=== PATIENT | female | born 1970 | race Caucasian/White ===

== ENCOUNTER → 2016-10-06 | Outpatient (CLI) | payer OTHER ==
[~2016-10-06] MED LIST: FRCT/ PO; LISI-729 PO; METH4PAK PO; OXYC1TAB3 PO; PREDNISONE TAPER PO
[2016-10-06 16:08] LABS: BLOOD UREA NITROGEN 17 mg/dl (7-18); BUN/CREATININE RATIO 24.1 (10-20); CALCIUM 9.1 mg/dl (8.5-10.1); CARBON DIOXIDE 30 mmol/L (21-32); CHLORIDE 101 mmol/L (98-107); CHOLESTEROL 225 mg/dl (0-200); GLUCOSE 89 mg/dl (70-99); POTASSIUM 3.9 mmol/L (3.5-5.1); SODIUM 139 mmol/L (136-145); TRIGLYCERIDES 395 mg/dl (0-150); VERY LOW DENSITY LIPOPROT CALC 79 mg/dl
[2016-10-06 16:13] LABS: CHOLESTEROL/HDL RATIO 5.1; HDL CHOLESTEROL 44 mg/dl; LDL CHOLESTEROL CALCULATED 102 mg/dl
[2016-10-12 21:39] LABS: ANTI-CENTROMERE AB <1.0 NEG AI (<1.0 NEG); ANTI-SS-A <1.0 NEG AI (<1.0 NEG); ANTI-SS-B <1.0 NEG AI (<1.0 NEG); COXSACKIE A10 <1:8; COXSACKIE A16 <1:8; COXSACKIE A2 <1:8; COXSACKIE A4 <1:8; COXSACKIE A7 <1:8; COXSACKIE A9 <1:8; COXSACKIE B2 1:16 (<1:8); DNA ds CRITHIDIA NEGATIVE (NEGATIVE); MICROSOMAL AB <1 IU/ML (<9); PARVOVIRUS IgG INDEX 4.1 index (<0.9); PARVOVIRUS IgM INDEX 0.1 index (<0.9); Sm Antibody <1.0 NEG AI (<1.0 NEG)
== END | disposition home or self-care (01) ==
LOC: C.LAB1850 14:46
PROVIDERS: ATTEND Internal Medicine Infectious Disease
DX: I10 Essential (primary) hypertension (principal); M46.1 Sacroiliitis, not elsewhere classified

== ENCOUNTER → 2016-12-12 | Outpatient (CLI) | payer OTHER ==
[~2016-12-12] MED LIST changes: +GADAVIST IV PRN
--- NOTE | 2016-12-12 12:24 | DIAGNOSTIC IMAGING REPORT ---
Brain MRI WITH AND WITHOUT CONTRAST HISTORY: R33.9 Retention of [id number] Common migraine without auraM54. TECHNIQUE: Multiplanar multisequence MRI of the brain was performed both before and after the intravenous administration of contrast. COMPARISON STUDY: None. FINDINGS: There are no areas of restricted diffusion to suggest acute infarction. There is a is single punctate foci of T2 hyperintensity within the subcortical white matter of the left parietal lobe. The remaining brain parenchyma demonstrates a normal signal intensity. Mild right-sided cerebellar tonsillar ectopia which is positioned up to 4 mm below the level of the foramen magnum. Paranasal sinuses are clear. The mastoid air cells are clear. The ventricles and sulci are within normal limits for age. There is no mass, hematoma, midline shift. The major vascular flow-voids at the skull base are well maintained. Postcontrast sequences show no areas of abnormal enhancement. Incidental note is made of a 1.2 cm cyst within the right parietal choroid plexus. This is slightly hyperintense on FLAIR sequences but does not enhance. Therefore, this is consistent with a choroid plexus cyst and is of doubtful clinical significance. IMPRESSION: 1. No acute intracranial abnormality. 2. Mild right-sided cerebellar tonsillar ectopia. 3. Single punctate focus of T2 hyperintensity within the subcortical white matter of the left parietal lobe. This is nonspecific but could be due to microvascular ischemic change or migraines. A demyelinating disease is considered less likely. 4. Incidental note is made of a 1.2 cm right parietal choroid plexus cyst.. Electronically signed by: Young Zuluaga M.D. 12/12/2016 12:23 PM Dictated Date/Time: 12/12/2016 12:11 PM
== END | disposition home or self-care (01) ==
LOC: C.MRI 10:25
PROVIDERS: ATTEND Internal Medicine Infectious Disease
DX: G43.009 Migraine without aura, not intractable, without status migrainosus (principal); H57.10 Ocular pain, unspecified eye; M54.16 Radiculopathy, lumbar region; A69.20 Lyme disease, unspecified; R33.9 Retention of urine, unspecified; G93.0 Cerebral cysts

== ENCOUNTER → 2016-12-28 | Outpatient (CLI) | payer OTHER ==
[~2016-12-28] MED LIST changes: +ESCI1TAB6 PO; -GADAVIST IV PRN; +IBUP-1450 PO
== END | disposition home or self-care (01) ==
LOC: C.PAPS 14:53
PROVIDERS: ATTEND Nurse Practitioner
DX: Z12.4 Encounter for screening for malignant neoplasm of cervix (principal)

== ENCOUNTER 2017-01-19 07:51 | Day surgery (SDC) | payer OTHER ==
[~2017-01-19] VITALS: Ht 160 cm; Wt 75.0 kg
[2017-01-19] MEDS ORDERED: LISI-729 PO (08:25)
[2017-01-19 08:26] VITALS: Ht 160 cm; Wt 75.0 kg
--- NOTE | 2017-01-19 09:37 | Discharge Instructions ---
Discharge Instructions Procedure Procedure Date: Jan 19, 2017. Reason for visit: W/Opening Pressure Migraine W/O Aura,Lymes,Fatigue. Discharge Discharge Date: Jan 19, 2017. Discharge Diagnosis: headache Instructions Activity Recommendations: 1 Day-May resume regular activity, 48 Hours of decreased exertion, 1 Day with no driving/machine use Return to School/Work: no limitations Recommended Home Diet: Resume Previous Diet Provider Instructions: Lumbar Puncture performed with Fluoroscopic guidance [45 ] level with [ 25] needle. No complications. opening pressure 10mmhg closing pressure 9 mmhg Allergies Coded Allergies: No Known Allergies (Verified , 01/19/17) Uncoded Allergies: SEASONAL AND PET DANDER IS IRRRITATING-NO TRT. (Allergy, Unknown, 11/14/02) Kristie Robles Recommendations: Call your doctor if: * Temperature above 101 degrees * Pain not relieved by pain medicine ordered * There is increased drainage or redness from any incision * You have any unanswered questions or concerns. Your Doctors Instructions noted above were prepared by provider Fabian Medrano. Patient Signature Section: Patient Instructions Signature Page Angela Martinez Patient (or Guardian) Signature/Date: I have read and understand the instructions given to me by my caregivers. Caregiver/RN/Doctor Signature/Date: The above-named patient and/or guardian has received patient instructions on this date. + Original Patient Signature Page (only) stays with chart. Please make copy for patient.
--- NOTE | 2017-01-19 09:39 | DIAGNOSTIC IMAGING REPORT ---
FLUOROSCOPICALLY GUIDED LUMBAR PUNCTURE CLINICAL HISTORY: Diagnostic headache FLUOROSCOPY TIME: 0.1 minute PROCEDURE: The procedure, risks and benefits were discussed with the patient including the risk of spinal headache, bleeding and infection. The patient agreed to the procedure and informed written consent was obtained. The procedure was performed by Dr. Medrano following a timeout. The left L4-L5 interlaminar space was targeted. Skin overlying the space was prepped and draped in the usual sterile fashion and local anesthesia was achieved with 1% lidocaine. Under intermittent fluoroscopic guidance, a 20-gauge x 3 1/2 in. Sprotte needle was inserted into the thecal sac. A total of 10 cc of clear, colorless cerebral spinal fluid was obtained and spread amongst 4 vials. The patient tolerated the procedure well. There were no immediate complications. The specimens were sent to the laboratory at the request of the referring physician. IMPRESSION: Successful fluoroscopic guided lumbar puncture with removal of 10 cc of clear, colorless cerebral spinal fluid. No immediate complications. Opening pressure 10 mmHg. Closing pressure 9 mmHg Electronically signed by: Fabian Medrano M.D. 01/19/2017 9:37 AM Dictated Date/Time: 01/19/2017 9:36 AM
[2017-01-19] MEDS ORDERED: ACETAMINOPHEN 500 MG TAB PO PRN (09:45)
[2017-01-19] MEDS ORDERED: ACETAMINOPHEN 500 MG TAB PO ONE (09:53)
[2017-01-19 10:05] VITALS: BP 131/74; PULSE 72; TEMP 36.8; O2SAT 100
[2017-01-19 10:15] LABS: CSF TOTAL PROTEIN 32.9 mg/dl (15.0-45.0)
[2017-01-19 10:24] LABS: CSF APPEARANCE CLEAR; CSF COLOR COLORLESS; CSF XANTHOCHROMIC NO XANTHOCHROMIA
[2017-01-19 10:39] VITALS: BP 120/69; PULSE 71; TEMP 36.9; O2SAT 98
[2017-01-19 11:35] VITALS: BP 131/70; PULSE 74; TEMP 36.9; O2SAT 98
[2017-01-19 12:25] VITALS: BP 116/61; PULSE 67; TEMP 36.6; O2SAT 95
[2017-01-19 13:35] VITALS: BP 144/73; PULSE 84; TEMP 36.6; O2SAT 95
[2017-01-26 22:06] LABS: ALBUMIN 4.6 g/dL (3.5-4.9); IGG SERUM 1370 mg/dL (694-1618); LYME DNA PCR CSF OR SYNOVIAL Not detected (Not Detected); LYME DNA SOURCE CSF; LYME IGG CSF NO BANDS DETECTED; LYME IGM CSF NO BANDS DETECTED; MYELIN BASIC PROTEIN 663 <2.0 mcg/L (0.0-4.0)
[2017-08-21] MEDS ORDERED: IBUP-1450 PO (08:51)
[2017-08-21] MEDS ORDERED: ESCI1TAB6 PO (09:16)
== END 2017-01-19 13:40 | disposition home or self-care (01) ==
LOC: C.ACU 07:51
PROVIDERS: ATTEND Psychiatry & Neurology Neurology
DX: G43.009 Migraine without aura, not intractable, without status migrainosus (principal); R53.83 Other fatigue; R51 Headache; A69.20 Lyme disease, unspecified

== ENCOUNTER 2017-01-24 18:11 | Emergency (ER) | payer OTHER ==
[~2017-01-24] VITALS: Ht 160 cm; Wt 75.0 kg
[~2017-01-24 18:11] MED LIST changes: -ESCI1TAB6 PO; -FRCT/ PO; -IBUP-1450 PO; -METH4PAK PO; -OXYC1TAB3 PO; -PREDNISONE TAPER PO
[2017-01-24 18:13] VITALS: TEMP 36.7; Ht 160 cm; Wt 75.0 kg
[2017-01-24] MEDS ORDERED: ONDANSETRON 8 MG/54 ML D5W IV STA (18:28)
[2017-01-24] MEDS ORDERED: SODIUM CHLORIDE 0.9% 1000ML 2,000 ML IV STA (18:28)
[2017-01-24] MEDS ORDERED: HYDROmorphone INJ 2 MG/ML SYR/VIAL IV PRN (18:30)
[2017-01-24] MEDS ORDERED: HYDROmorphone INJ 1 MG/ML SYR ONE ×2 (18:54→21:09)
[2017-01-24] MEDS ORDERED: FRCT/ PO (19:07)
[2017-01-24] MEDS ORDERED: PREDNISONE TAPER PO (19:07)
[2017-01-24 19:23] LABS: BASO % 0.1 %; BASO ABS # 0.01 K/uL (0-0.2); COMPLETE YES; HEMATOCRIT 38.7 % (37-47); IG% 0.4 %; LYMPH % 13.1 %; LYMPH ABS # 2.05 K/uL (1.2-3.4); MEAN CELL VOLUME 83.9 fL (80-100); MEAN CORPUSCULAR HGB CONC 33.3 g/dl (32-36); MEAN PLATELET VOLUME 9.2 fL (7.4-10.4); MONO % 5.9 %; NEUT % 80.5 %; PLATELET COUNT 420 K/uL (130-400); RED BLOOD COUNT 4.61 M/uL (4.2-5.4); WHITE BLOOD COUNT 15.65 K/uL (4.8-10.8)
[2017-01-24 19:39] LABS: INR 0.9 (0.9-1.1); PARTIAL THROMBOPLASTIN RATIO 1.1
[2017-01-24 19:41] LABS: URINE APPEARANCE CLEAR (CLEAR); URINE BILIRUBIN NEG (NEG); URINE COLOR YELLOW; URINE EPITHELIAL CELL AUTO 20-30 /lpf (0-5); URINE NITRITE NEG (NEG); URINE PH 5.5 (4.5-7.5); URINE SPECIFIC GRAVITY 1.028 (1.000-1.030); UROBILINOGEN NEG (NEG)
[2017-01-24 19:48] LABS: MANUAL MICROSCOPIC REQUIRED? NO; REVIEW REQ? NO
--- NOTE | 2017-01-24 19:52 | EMERGENCY ROOM VISIT NOTE ---
History Report prepared by Britt: Lianna Sanchez Under the Supervision of: Dr. Ralph Regan M.D. First contact with patient: 18:17 Chief Complaint: HEADACHE Stated Complaint: HEADACHE, SEVERE LBP - S/P SPINAL TAP- PHYSICIAN R History of Present Illness The patient is a 46 year old female who presents to the Emergency Room with complaints of constant severe headache starting six days ago. She currently rates her pain as an 8/10 in severity. She states that she has a history of an 8 month headache, but that this differs from her baseline headache. The patient had a spinal tap completed five days ago prior to the start of her new headache to determine if Lyme Disease spread to her brain or spinal cord. She states that she felt that the spinal tap went well. When this headache started six days ago she called her neurologist who told her to schedule an appointment. She states that went yesterday to him and they prescribed her Prednisone and Fioricet. She states that she has used almost all the medication prescribed to help alleviate her pain and she has had no success. She notes that she is nauseous, has lower back pain, mild chest pain, and felt "like her body had the flu." She notes that laying down helps the headache return to what her headache feels like as a baseline and that standing up worsens the new headache. Pt denies LOC, fevers, chills, diaphoresis, visual changes, neck pain, chest pain, breathing difficulties, vomiting, abdominal pain, melena, hematochezia, urinary symptoms, numbness, weakness, lymphadenopathy, rash, or other complaints. Source of History: patient Onset: six days ago Position: head Symptom Intensity: severe Timing: constant Modifying Factors (Worsening): other (standing up) Modifying Factors (Relieving): rest, other (laying down) Associated Symptoms: + back pain, + nausea Review of Systems See HPI for pertinent positives and negatives. A total of ten systems were reviewed and were otherwise negative. Past Medical & Surgical No pertinent past history stated. Family History No pertinent family history stated. Social History Smoking Status: Never Smoker Housing Status: lives with family Occupation Status: employed Current/Historical Medications Scheduled [Prednisone Taper], 1 DOSE PO DIRECTED Scheduled PRN Acetamin/Butalbital/Caffeine (Fioricet), 1 TAB PO DIRECTED PRN for Headache Oxycodone Ir (Roxicodone Ir), 1-2 TAB PO Q4H PRN for Pain Miscellaneous Medications Lisinopril (Zestril), 5 MG PO Allergies Coded Allergies: No Known Allergies (Verified , 01/24/17) Uncoded Allergies: SEASONAL AND PET DANDER IS IRRRITATING-NO TRT. (Allergy, Unknown, 11/14/02) Physical Exam Vital Signs Date Time Temp Pulse Resp B/P Pulse Ox O2 Delivery O2 Flow Rate FiO2 01/25/17 00:03 78 20 146/70 98 01/24/17 22:56 72 20 145/92 98 Room Air 01/24/17 21:07 96 20 138/96 97 Room Air 01/24/17 19:51 69 18 137/87 99 Room Air 01/24/17 18:13 36.7 91 16 158/85 100 Physical Exam GENERAL: Awake, alert, well-appearing, in no distress HENT: Normocephalic, atraumatic. Oropharynx unremarkable. EYES: Normal conjunctiva. Sclera non-icteric. PEERL. NECK: Supple. No nuchal rigidity. FROM. No JVD. RESPIRATORY: Clear to auscultation. CARDIAC: Regular rate, normal rhythm. Extremities warm and well perfused. Pulses equal. ABDOMEN: Soft, non-distended. No tenderness to palpation. No rebound or guarding. No masses. RECTAL: Deferred. MUSCULOSKELETAL: Chest examination reveals no tenderness. The back is symmetrical on inspection without obvious abnormality. There is no CVA tenderness to palpation. No joint edema. LOWER EXTREMITIES: Calves are equal size bilaterally and non-tender. No edema. No discoloration. NEURO: Normal sensorium. No sensory or motor deficits noted. Cranial nerves are intact. SKIN: No rash or jaundice noted. Medical Decision & Procedures ER Provider Diagnostic Interpretation: X ray results as stated below per my interpretation and radiologist interpretation. Other radiology results as stated below per my review and radiologist interpretation. MRI L SPINE: Comparison is made to lumbar spine radiographs performed 06/17/16. There is normal lumbar lordosis, vertebral body height, and alignment. There are no marrow signal abnormalities to suggest acute fracture. The conus medullaris is seen opposite to T12-L1 and appears normal. There is no evidence of paraspinal or epidural hematoma. There is no abnormal enhancement following contrast administration. There is disc desiccation at L4-L5 and L5-S1. Mild circumferential disc bulging at L4-L5 is not associated with significant spinal canal or foraminal narrowing. At L5-S1 there is a 5mm central posterior disc herniation associated with a focus of T2 signal hyperintensity in the herniated disc suggesting an annular fissure/tear. This causes mild narrowing of the spinal cnal and lateral recesses bilaterally. In conjunction with mild facet arthropathy, there is mild bilateral foraminal narrowing at L5-S1. Radiologist: Katlin Correa M.D. Laboratory Results 01/24/17 19:05 Red Blood Count 4.61, Mean Corpuscular Volume 83.9, Mean Corpuscular Hemoglobin 28.0, Mean Corpuscular Hemoglobin Concent 33.3, Mean Platelet Volume 9.2, Neutrophils (%) (Auto) 80.5, Lymphocytes (%) (Auto) 13.1, Monocytes (%) (Auto) 5.9, Eosinophils (%) (Auto) 0.0, Basophils (%) (Auto) 0.1, Neutrophils # (Auto) 12.60, Lymphocytes # (Auto) 2.05, Monocytes # (Auto) 0.93, Eosinophils # (Auto) 0.00, Basophils # (Auto) 0.01 01/24/17 19:05 Test 01/24/17 19:05 White Blood Count 15.65 K/uL (4.8-10.8) Red Blood Count 4.61 M/uL (4.2-5.4) Hemoglobin 12.9 g/dL (12.0-16.0) Hematocrit 38.7 % (37-47) Mean Corpuscular Volume 83.9 fL (80-100) Mean Corpuscular Hemoglobin 28.0 pg (25-34) Mean Corpuscular Hemoglobin Concent 33.3 g/dl (32-36) Platelet Count 420 K/uL (130-400) Mean Platelet Volume 9.2 fL (7.4-10.4) Neutrophils (%) (Auto) 80.5 % Lymphocytes (%) (Auto) 13.1 % Monocytes (%) (Auto) 5.9 % Eosinophils (%) (Auto) 0.0 % Basophils (%) (Auto) 0.1 % Neutrophils # (Auto) 12.60 K/uL (1.4-6.5) Lymphocytes # (Auto) 2.05 K/uL (1.2-3.4) Monocytes # (Auto) 0.93 K/uL (0.11-0.59) Eosinophils # (Auto) 0.00 K/uL (0-0.5) Basophils # (Auto) 0.01 K/uL (0-0.2) RDW Standard Deviation 38.8 fL (36.4-46.3) RDW Coefficient of Variation 12.8 % (11.5-14.5) Immature Granulocyte % (Auto) 0.4 % Immature Granulocyte # (Auto) 0.06 K/uL (0.00-0.02) Prothrombin Time 10.0 SECONDS (9.0-12.0) Prothromb Time International Ratio 0.9 (0.9-1.1) Activated Partial Thromboplast Time 28.0 SECONDS (21.0-31.0) Partial Thromboplastin Ratio 1.1 Urine Color YELLOW Urine Appearance CLEAR (CLEAR) Urine pH 5.5 (4.5-7.5) Urine Specific [place] 1.028 (1.000-1.030) Urine Protein NEG (NEG) Urine Glucose (UA) NEG (NEG) Urine Ketones NEG (NEG) Urine Occult Blood 1+ (NEG) Urine Nitrite NEG (NEG) Urine Bilirubin NEG (NEG) Urine Urobilinogen NEG (NEG) Urine Leukocyte Esterase NEG (NEG) Urine WBC (Auto) 1-5 /hpf (0-5) Urine RBC (Auto) 0-4 /hpf (0-4) Urine Hyaline Casts (Auto) 1-5 /lpf (0-5) Urine Epithelial Cells (Auto) 20-30 /lpf (0-5) Urine Bacteria (Auto) NEG (NEG) Urine Test NEG (NEG) Anion Gap 5.0 mmol/L (3-11) Est Creatinine Clear Calc Drug Dose 94.7 ml/min Estimated GFR () 116.4 Estimated GFR (Non- 100.4 BUN/Creatinine Ratio 19.1 (10-20) Calcium Level 9.0 mg/dl (8.5-10.1) Chemistry Specimen Hemolysis Laboratory results reviewed by me Medications Administered Medications (Trade) Dose Ordered Sig/Analia Route Start Time Stop Time Status Last Admin Dose Admin Ondansetron HCl 8 mg 8 mg NOW STAT IV 01/24/17 18:28 01/24/17 18:37 DC 01/24/17 19:01 8 MG Sodium Chloride (Nss 1000ml) 2,000 ml @ 999 mls/hr Q2H1M STAT IV 01/24/17 18:28 01/24/17 20:28 DC 01/24/17 19:01 999 MLS/HR Hydromorphone HCl (Dilaudid Inj) 1 mg STK-MED ONCE .ROUTE 01/24/17 18:54 01/24/17 18:55 DC 01/24/17 19:01 1 MG Lorazepam (Ativan Inj) 0.5 mg NOW STAT IV 01/24/17 20:58 01/24/17 21:01 DC 01/24/17 22:03 0.5 MG Hydromorphone HCl (Dilaudid Inj) 1 mg STK-MED ONCE .ROUTE 01/24/17 21:09 01/24/17 21:10 DC 01/24/17 21:06 1 MG Oxycodone HCl (Roxicodone Immediate Rel 5MG Home Pack) 1 homepack UD ONCE PO 01/25/17 00:00 01/25/17 00:01 DC 01/24/17 23:59 1 HOMEPACK ED Course 3: The patient was evaluated in room C8. A complete history and physical exam was performed. 1827: Ordered NSS 2000 ml @ 999 mls/hr IV, Zofran 8 mg Iv 8 mg IV. 1829: Ordered Dilaudid Inj 1 mg PRN IV pain. 1920: Discussed the patient's case with anesthesia. 1942: I reevaluated the patient and she is feeling better. She is waiting on anesthesia to arrive. 2049: Discussed the patient's case with Dr. Lee from anesthesia. Dr. Lee talked with the patient and they came to the conclusion that she wants to try to wait 48 hours and proceed conservatively. He is worried that he will make her back pain worse by doing the blood patch. We decided to complete an MRI. 2057: Ordered Ativan Inj 0.5 mg IV. 2220: I reevaluated the patient and she was resting comfortably. 0: I reevaluated the patient. Discussed results and discharge instructions: She was referred to [facility] and would like to see Dr. Geronimo. I instructed her to return to the ED if her postural headaches change and to otherwise follow up with her neurologist. She verbalized understanding and agreement. The patient is ready for discharge. Medical Decision Triage Nursing notes reviewed. The patient's presentation and history were concerning for post lumbar headache. Etiologies such as migraine, tumor, headache, sinus thrombosis, temporal arteritis, sinusitis, CVA, ICH, SAH, infection, as well as others were entertained. The patient was given NSS, dilaudid and zofran for symptom control. Blood work was also obtained. The patient has a a slight leukocytosis on CBC that this may be from her steroids. Chemistry panel unremarkable. Urinalysis unremarkable. unremarkable. The patient was feeling better with the above medications. Because of her duration of symptoms I did consult with Dr. Lee of anesthesia. After he evaluated the patient they elected for conservative management and waiting another 48 hours patient is having more back pain and he felt that this could be exacerbated by the lumbar spinal blood patch. The patient was concerned about her increasing back pain. She underwent lumbar MRI imaging and this showed a disc tear in protrusion. No abnormal fluid collections, signs of osteomyelitis or discitis were noted. I discussed conservative management with the patient. She wishes to follow-up with Dr. Geronimo of orthopedic spine. I did offer a prescription for some oxycodone which will help with her back as well as with her headache issues. She will also need follow-up closely with her neurologist. If she is not any better she will be back in to the Emergency Room in 48 hours for reevaluation of possible blood patch. By the evaluation outlined above other emergent etiologies such as those listed in the differential, as well as others, were deemed relatively unlikely. The patient and family were informed about the findings as listed above. All questions were answered and they were pleased with the treatment. Return instructions were outlined and the patient was discharged in stable condition. The patient was referred to neurology and orthopedic spine for follow-up for a recheck of the current condition. The chart was completed utilizing [employer] voice recognition software. Grammatical errors, random word insertions, pronoun errors, and incomplete sentences are an occasional consequence of this system due to software limitations, ambient noise, and hardware issues. Any formal questions or concerns about the content, text, or information contained within the body of this dictation should be directly addressed to the physician for clarification. [place] Drug Monitoring Program Search Results: patient reviewed within database, no issues identified Consults Time Called: 1920 Consulting Physician: Dr. Lee- anesthesia Returned Call: 2049 Dr. Lee talked with the patient and they came to the conclusion that she wants to try to wait 48 hours and proceed conservatively. He is worried that he will make her back pain worse by doing the blood patch. We decided to complete an MRI. Impression Primary Impression: Headache Additional Impression: Degenerative disc disease, lumbar Scribe Attestation The scribe's documentation has been prepared under my direction and personally reviewed by me in its entirety. I confirm that the note above accurately reflects all work, treatment, procedures, and medical decision making performed by me. Departure Information Dispostion Home / Self-Care Prescriptions Oxycodone Ir (Roxicodone Ir) 5 Mg Tab 1-2 TAB PO Q4H Y for Pain, #15 TAB Prov: Ralph Regan MD 01/24/17 Referrals Gertrude Mckinnon, C.R.N.P. (PCP) Forms HOME CARE DOCUMENTATION FORM, IMPORTANT VISIT INFORMATION, Work Instructions Patient Instructions My [facility] Additional Instructions DO NOT drive, drink alcohol, operate machinery, or perform dangerous activities today. You were given medications in the ER that can affect your ability to safely function or operate a vehicle. Oxycodone (OxyIR) 5mg: Take 1-2 pills every four hours for breakthrough pain. Avoid alcohol, operating machinery or dangerous equipment, working on ladders or roofs, DRIVING, or situations where being under the influence may be dangerous. It is recommended to use an [id number] stool softener such as Colace, 100mg twice daily while taking this medication to avoid constipation. Ibuprofen(Motrin, Advil) may be used for fever or pain. Use 600mg every six hours as needed. Take with food. Avoid using more than 2400mg in a 24 hour period. Do not use 2400mg per day for more than three consecutive days without physician direction. Prolonged inappropriate use can lead to stomach upset or ulcers. This medication can be taken if you need to drive, work, or perform activities which may be dangerous when taking narcotic pain medication. (AND/OR) Acetaminophen(Tylenol) may be used for fever or pain. Use 1000mg every six hours as needed. Avoid using more than 4000mg in a 24 hour period. This medication can be taken if you need to drive, work, or perform activities which may be dangerous when taking narcotic pain medication. Rest and avoid heavy lifting until your symptoms resolve and then gradually return to full activity. A good rule of thumb is if it hurts your back to perform a certain activity, then it should be avoided until you are healthy again. A heating pad, warm compresses, or a hot shower may help with tight muscles and can be done several times a day as needed. Continue current medications. Rest and drink plenty of fluids. Increase caffeine intake for the next 48 hours. Return to the Emergency Room in 48 hours if your headache continues with standing or changing positions. Return to the ER immediately for any numbness, tingling, severe pain, loss of control of your bowels or bladder, inability to walk, severe headache, fever, change in your current condition, or as needed. Follow up with your neurologist this week for a recheck of your current condition. Follow-up with Dr. geronimo from orthopedic spine as discussed. Problem Qualifiers
[2017-01-24 19:53] LABS: BUN/CREATININE RATIO 19.1 (10-20); CREATININE 0.72 mg/dl (0.60-1.20); POTASSIUM 3.8 mmol/L (3.5-5.1)
[2017-01-24] MEDS ORDERED: LORAZEPAM 2 MG/ML 1 ML VIAL IV STA (20:58)
--- NOTE | 2017-01-24 20:59 | Anesthesiology Progress Note ---
Anesthesia Progress Note Date of Service Jan 24, 2017. Progress Notes 46 yo female had lumbar puncture 01/19/17. Developed severe postural headache approximately 48hrs later. History is complicated by chronic headache and back pain, attributed to Lyme disease, which prompted the LP. 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 I informed her that blood patch incurs risks which include back pain and dural puncture and that spontaneous resolution post-dural puncture headache is routinely expected. For these reasons, I recommended conservative treatment at this time , including hydration, caffeine and analgesics. Pt expressed understanding and agreed. Discussed with Dr. Regan who also concurred and agreed to implement conservative treatment. If symptoms persist or worsen, pt can be re- evaluated for blood patch.
[2017-01-24] MEDS ORDERED: GADAVIST IV PRN (23:15)
[2017-01-24] MEDS ORDERED: OXYC1TAB3 PO (23:54)
[2017-01-25] MEDS ORDERED: OXYCODONE IR HOME PACK PO ONE
[2017-01-25 00:03] VITALS: BP 146/70; PULSE 78; O2SAT 98
--- NOTE | 2017-01-25 07:11 | DIAGNOSTIC IMAGING REPORT ---
MRI LUMBAR SPINE COMBINATION CLINICAL HISTORY: Severe back pain. History of lumbar puncture. TECHNIQUE: Sagittal and axial T1, T2 and STIR images were obtained. Imaging was performed for after administration of 7 cc of intravenous Gadavist. COMPARISON STUDY: No previous studies for comparison. OBSERVATIONS: The vertebral bodies and posterior elements appear intact. There is no abnormal bony signal present to suggest a marrow replacement process. L1-2: No disc protrusions or extrusions. No evidence of spinal canal or neural foraminal compromise. L2-3: No disc protrusions or extrusions. No evidence of spinal canal or neural foraminal compromise. L3-4: No disc protrusions or extrusions. No evidence of spinal canal or neural foraminal compromise. L4-5: There is a minimal circumferential disc bulge. There is no significant spinal or foraminal stenosis. L5-S1: There is an annular fissure. There is a small central disc protrusion. This abuts the thecal sac but there is no significant spinal stenosis. There is no significant foraminal narrowing.. There are no findings to indicate an epidural hematoma. The conus medullaris and cauda equina appear normal. There are no pathologically enhancing lesions. IMPRESSION: Annular fissure and small central disc protrusion at the L5-S1 level. Electronically signed by: Ashok Roberts M.D. 01/25/2017 7:09 AM Dictated Date/Time: 01/25/2017 7:04 AM
[2017-08-21] MEDS ORDERED: IBUP-1450 PO (08:51)
[2017-08-21] MEDS ORDERED: ESCI1TAB6 PO (09:16)
== END 2017-01-25 00:05 | disposition home or self-care (01) ==
LOC: C.EDB 18:13 → C.EDC 01-25 00:05
DX: R51 Headache (principal); M51.36 Other intervertebral disc degeneration, lumbar region

== ENCOUNTER → 2017-02-05 | Outpatient (CLI) | payer OTHER ==
[~2017-02-05] MED LIST changes: +ESCI1TAB6 PO; +FRCT/ PO; +IBUP-1450 PO; +METH4PAK PO; +OXYC1TAB3 PO; +PREDNISONE TAPER PO
== END | disposition home or self-care (01) ==
LOC: C.LAB 20:12
PROVIDERS: ATTEND Psychiatry & Neurology Neurology
DX: R53.83 Other fatigue (principal); M79.1 Myalgia

== ENCOUNTER 2017-04-10 16:22 | Emergency (ER) | payer OTHER ==
[~2017-04-10] VITALS: Ht 160 cm; Wt 74.3 kg
[~2017-04-10 16:22] MED LIST changes: -ESCI1TAB6 PO; -IBUP-1450 PO; -METH4PAK PO
[2017-04-10 16:34] VITALS: TEMP 36.7; Ht 160 cm; Wt 74.3 kg
--- NOTE | 2017-04-10 16:56 | EMERGENCY ROOM VISIT NOTE ---
ED Visit Note First contact with patient: 16:43 CHIEF COMPLAINT: Neck pain HISTORY OF PRESENT ILLNESS: This 46-year-old female patient presents to the emergency department complaining of pain in the neck, radiating to her right arm , worse at night, 2 weeks. The patient is an extremely poor historian. The patient states for the past 2 weeks, she has been experiencing a tightness sensation of her right arm, which she describes as feeling "like my vein is bursting". The patient states it feels from her fingers to her armpit, like a tight rubber band is wrapped around her arm. She states the pain does wake her from sleep, and she is unable to get relief with stretching, movement, or any other method. The patient does have a history of bulging disks in her low back , and did have an MRI completed to confirm this. The patient states she does see a chiropractor regularly due to chronic neck and upper back pain, and states her last visit to the chiropractor was approximately one and half weeks ago. She believes the pain began since this last visit, and not before. The patient does report tripping while walking up the steps one week ago. Further, the patient does have a history of Lyme disease. She states she did have a spinal tap completed approximately 3-4 months ago. At that time she developed a headache related to the spinal tap, and did need a blood patch. She states she has not had headaches in several months since this time. The patient rates the pain as a tightness and 6/10. The patient has taken no medications for the pain. The patient does describe minimal numbness and tingling when the pain is at its worst. The patient denies chest pain or shortness of breath. There was no head injury and no loss of consciousness. The patient denies headache, blurred vision, abdominal pain, nausea, or vomiting. The patient denies change in personality. REVIEW OF SYSTEMS: A 10 system review of systems was completed with positives and pertinent negatives listed in the HPI. ALLERGIES: None MEDICATIONS: None PMH: As described in history of present illness SOCIAL HISTORY: The patient lives locally with her family. She denies drug, alcohol, tobacco use. PHYSICAL EXAM: VITALS: Vitals are noted on the nurse's note and reviewed by myself. Vital signs stable. GENERAL: 46-year-old female, in no acute distress, nondiaphoretic , well-developed well-nourished. SKIN: Capillary reflex less than 2 seconds. HEENT: Normocephalic. PERRLA. EOMI. Nares patent. Mucous membranes moist. Neck is supple without nuchal rigidity. Cervical spine is not tender to palpation. The patient denies tenderness of the paraspinal muscles on palpation. There is no lymphadenopathy. MUSCULOSKELETAL: The patient has full range of motion of the bilateral arms, however patient states abduction of the right arm does cause increased pain and discomfort. Strength 5/5 of the bilateral upper extremities. The patient does not have tenderness with movement of the neck. The right arm is not swollen pr discolored. Capillary refill less than 2 seconds. The patient does have full range of motion of her right upper extremity, at the shoulders, elbow, wrist, and fingers. She does have good sensation of her fingers to sharp and dull touch. NEURO: Patient was alert and oriented to person place and time. Normal sensation to light and sharp touch. No focal neurologic deficits. RADIOLOGY: X-Ray Cervical Spine: FINDINGS: The prevertebral soft tissues are normal. No fractures or subluxations are visualized. There is no significant disc space narrowing. There is a small nonspecific calcification within the left neck IMPRESSION: Unremarkable conventional radiographic evaluation of the cervical spine Venous Doppler Ultrasound the Right Upper Extremity: FINDINGS: No intraluminal thrombus was visualized. The internal jugular, subclavian, axillary, cephalic, brachial, basilic, radial, and ulnar veins were patent. IMPRESSION: No evidence of right upper extremity DVT. EMERGENCY DEPARTMENT COURSE: I examined the patient. An x-ray of her cervical spine was performed. This study was reviewed by me and interpreted by radiology with no acute findings. I did elect to perform a upper extremity duplex scan of the patient's right due to history of paresthesias. This scan was also interpreted by radiologist as negative. He says these findings with the patient, and discussed with her that I suspect her symptoms are related to a cervical radiculopathy. The patient was discharged home with steroids, and advised to follow-up with her primary care provider and/or orthopedic surgeon for further evaluation and management of her discomfort. The patient was discharged home in good condition. DIFFERENTIAL DIAGNOSIS: Cervical radiculopathy, cervical fracture, shoulder fracture, DVT, mass effect, malignancy, musculoskeletal strain, contusion, and others. DIAGNOSIS: Cervical Radiculopathy DISCHARGE INSTRUCTIONS & TREATMENT: You have been prescribed a Medrol Dosepak. This is a steroid which will help decrease your inflammation, and hopefully discomfort in your arm. Take the medicine as prescribed. Take the ENTIRE 6 day course of the steroids. You should not take additional anti-inflammatory medications, such as ibuprofen, naproxen, Motrin, Advil, Aleve zcei-evr-pdazrah while taking this medication. For pain control, you can use the following oule-vim-fdxccxi medicines (if >12 yo): - Regular strength (325mg/tab) Tylenol (acetaminophen) 2 tabs every 4-6 hours as needed. Do not exceed 12 tablets in a 24 hour period. Avoid taking more than 4 grams (4000 mg) of Tylenol per day. This includes any other sources of acetaminophen you may take on a regular basis. Use a heating pad over the area of discomfort for soothing relief. Follow-up in 2-3 days with your primary care provider and/or orthopedic surgeon for further evaluation and workup. Return to the emergency department if you experience worsening symptoms despite treatment and treatment course, or if he developed any of the following symptoms : Intractable pain despite aforementioned treatment course, facial droop, slurred speech, unilateral weakness, worsening numbness or tingling, swelling in the arm, redness in the arm, decreased strength, or other symptoms which are concerning to you. Current/Historical Medications Scheduled Methylprednisolone (Medrol Dosepak), 0 PO DAILY Allergies Coded Allergies: No Known Allergies (Verified , 04/10/17) Uncoded Allergies: SEASONAL AND PET DANDER IS IRRRITATING-NO TRT. (Allergy, Unknown, 11/14/02) Vital Signs Date Time Temp Pulse Resp B/P (MAP) Pulse Ox O2 Delivery O2 Flow Rate FiO2 04/10/17 19:11 69 16 134/100 98 04/10/17 16:34 36.7 84 16 120/85 98 Room Air Departure Information Impression Primary Impression: Arm pain, right Additional Impression: Cervical radicular pain Dispostion Home / Self-Care Condition GOOD Prescriptions Methylprednisolone (MEDROL DOSEPAK) 4 Mg Christopher 0 PO DAILY, #1 PKT Prov: Fariha Tabares PA-C 04/10/17 Referrals Gertrude Mckinnon, C.R.N.P. (PCP) Ralph Geronimo, DO Patient Instructions ED Cervical Radiculopathy, My [facility] Additional Instructions You have been prescribed a Medrol Dosepak. This is a steroid which will help decrease your inflammation, and hopefully discomfort in your arm. Take the medicine as prescribed. Take the ENTIRE 6 day course of the steroids. You should not take additional anti-inflammatory medications, such as ibuprofen, naproxen, Motrin, Advil, Aleve zwyc-weg-muujtxy while taking this medication. For pain control, you can use the following vzwr-bqy-fahyodd medicines (if >12 yo): - Regular strength (325mg/tab) Tylenol (acetaminophen) 2 tabs every 4-6 hours as needed. Do not exceed 12 tablets in a 24 hour period. Avoid taking more than 4 grams (4000 mg) of Tylenol per day. This includes any other sources of acetaminophen you may take on a regular basis. Use a heating pad over the area of discomfort for soothing relief. Follow-up in 2-3 days with your primary care provider and/or orthopedic surgeon for further evaluation and workup. Return to the emergency department if you experience worsening symptoms despite treatment and treatment course, or if he developed any of the following symptoms : Intractable pain despite aforementioned treatment course, facial droop, slurred speech, unilateral weakness, worsening numbness or tingling, swelling in the arm, redness in the arm, decreased strength, or other symptoms which are concerning to you. Problem Qualifiers
--- NOTE | 2017-04-10 17:19 | DIAGNOSTIC IMAGING REPORT ---
CERVICAL SPINE 3 VIEWS CLINICAL HISTORY: Neck pain with right arm paresthesias COMPARISON STUDY: No previous studies for comparison. FINDINGS: The prevertebral soft tissues are normal. No fractures or subluxations are visualized. There is no significant disc space narrowing. There is a small nonspecific calcification within the left neck IMPRESSION: Unremarkable conventional radiographic evaluation of the cervical spine Electronically signed by: Ashok Roberts M.D. 04/10/2017 5:18 PM Dictated Date/Time: 04/10/2017 5:17 PM
--- NOTE | 2017-04-10 18:22 | DIAGNOSTIC IMAGING REPORT ---
ULTRASOUND VENOUS DOPPLER ULTRASOUND THE RIGHT UPPER EXTREMITY CLINICAL HISTORY: Right arm numbness and paresthesias. COMPARISON STUDY: No previous studies for comparison. FINDINGS: No intraluminal thrombus was visualized. The internal jugular, subclavian, axillary, cephalic, brachial, basilic, radial, and ulnar veins were patent. IMPRESSION: No evidence of right upper extremity DVT. Electronically signed by: Ashok Roberts M.D. 04/10/2017 6:21 PM Dictated Date/Time: 04/10/2017 6:21 PM
[2017-04-10] MEDS ORDERED: METH4PAK PO (18:55)
[2017-04-10 19:11] VITALS: BP 134/100; PULSE 69; O2SAT 98
== END 2017-04-10 19:13 | disposition home or self-care (01) ==
LOC: C.EDB 16:24 → C.EDD 19:13
DX: M54.12 Radiculopathy, cervical region (principal); M79.601 Pain in right arm

== ENCOUNTER → 2017-05-10 | Outpatient (CLI) | payer OTHER | END | disposition home or self-care (01) | LOC: C.LABBFT 08:35 | PROVIDERS: ATTEND Nurse Practitioner | DX: R52 Pain, unspecified (principal) ==

== ENCOUNTER → 2017-08-23 | Outpatient (CLI) | payer OTHER ==
[~2017-08-23] MED LIST changes: +ESCI1TAB6 PO; -FRCT/ PO; +IBUP-1450 PO; -LISI-729 PO; -OXYC1TAB3 PO; -PREDNISONE TAPER PO
--- NOTE | 2017-08-28 07:50 | MAMMOGRAPHY REPORT ---
BILATERAL DIGITAL SCREENING MAMMOGRAM TOMOSYNTHESIS WITH CAD: 08/23/2017 CLINICAL HISTORY: Routine screening. Patient has no complaints. TECHNIQUE: Breast tomosynthesis in addition to standard 2D mammography was performed. Current study was also evaluated with a Computer Aided Detection (CAD) system. COMPARISON: Comparison is made to exams dated: 06/02/2016 mammogram, 05/05/2015 mammogram, 12/16/2013 [facility], 12/19/2012 mammogram, 11/21/2011 mammogram, and 11/02/2011 mammogr - [facility]. BREAST COMPOSITION: The tissue of both breasts is heterogeneously dense, which may obscure small mas ses. FINDINGS: The parenchymal pattern is unchanged. No developing mass, architectural distortion or clus ter of suspicious microcalcifications is seen in either breast. IMPRESSION: ACR BI-RADS CATEGORY 2: BENIGN There is no mammographic evidence of malignancy. A 1 year screening mammogram is recommended. The pa tient will receive written notification of the results. Approximately 10% of breast cancers are not detected with mammography. A negative mammographic report should not delay biopsy if a clinically suggestive mass is present. Nia Herman M.D. ay/:08/26/2017 08:46:30 Production Hardener: Sheela NEAL(R)(Cathy), [facility] letter sent: Normal 1/2 BI-RADS Code: ACR BI-RADS Category 2: Benign
== END | disposition home or self-care (01) ==
LOC: C.MAMM 17:03
PROVIDERS: ATTEND Nurse Practitioner
DX: Z12.31 Encounter for screening mammogram for malignant neoplasm of breast (principal)

== ENCOUNTER 2017-11-03 16:10 | Emergency (ER) | payer OTHER ==
[~2017-11-03] VITALS: Ht 167.6 cm; Wt 75.5 kg
[~2017-11-03 16:10] MED LIST changes: -ESCI1TAB6 PO
[2017-11-03 16:13] VITALS: Ht 167.6 cm; Wt 75.5 kg
[2017-11-03] MEDS ORDERED: AMBEREN PO (16:57)
[2017-11-03] MEDS ORDERED: ASPI-390 PO (16:57)
[2017-11-03] MEDS ORDERED: CHOL400T PO (16:57)
[2017-11-03] MEDS ORDERED: [UNRECOGNIZED DRUG - OTHER] PO (16:57)
[2017-11-03] MEDS ORDERED: B-CO1TAB21 PO (16:57)
[2017-11-03] MEDS ORDERED: TURM1CAP2 PO (16:57)
[2017-11-03] MEDS ORDERED: IBUP-1050 PO (16:57)
[2017-11-03 17:25] VITALS: TEMP 37.3
[2017-11-03 17:25] LABS: BASO % 0.2 %; BASO ABS # 0.03 K/uL (0-0.2); EOS % 0.7 %; HEMATOCRIT 39.5 % (37-47); IG# 0.04 K/uL (0.00-0.02); LYMPH % 14.9 %; LYMPH ABS # 2.18 K/uL (1.2-3.4); MEAN CELL VOLUME 86.1 fL (80-100); MEAN CORPUSCULAR HEMOGLOBIN 28.3 pg (25-34); MEAN CORPUSCULAR HGB CONC 32.9 g/dl (32-36); MEAN PLATELET VOLUME 9.2 fL (7.4-10.4); MONO % 6.6 %; MONO ABS # 0.96 K/uL (0.11-0.59); NEUT % 77.3 %; NEUT ABS # 11.28 K/uL (1.4-6.5); PLATELET COUNT 414 K/uL (130-400); RED CELL DISTRIBUTION WIDTH CV 13.5 % (11.5-14.5); RED CELL DISTRIBUTION WIDTH SD 42.7 fL (36.4-46.3); WHITE BLOOD COUNT 14.59 K/uL (4.8-10.8)
[2017-11-03 17:43] LABS: CALCIUM 9.3 mg/dl (8.5-10.1); CREATININE 0.83 mg/dl (0.60-1.20); POTASSIUM 3.7 mmol/L (3.5-5.1)
[2017-11-03] MEDS ORDERED: KETOROLAC TROMETHAMINE 30 MG/ML VIAL IV STA (17:45)
[2017-11-03] MEDS ORDERED: CEFTRIAXONE SOD INJ 1 GM ADDVIAL IV STA (17:45)
[2017-11-03] MEDS ORDERED: LORAZEPAM 2 MG/ML 1 ML VIAL IV STA (18:01)
[2017-11-03 19:26] LABS: INFLUENZA A PCR Neg for Influ A (NEG); INFLUENZA B PCR Neg for Influ B (NEG)
[2017-11-03] MEDS ORDERED: GADAVIST IV PRN (20:45)
--- NOTE | 2017-11-03 21:27 | DIAGNOSTIC IMAGING REPORT ---
LUMBAR SPINE COMBINATION CLINICAL HISTORY: 46 years-old Female presenting with eval for epidural abscess/disc herniation, urinary pressure, blood in urine, elevated white blood cell count. TECHNIQUE: Multisequence, multiplanar MR imaging of the lumbar spine was performed before and after the administration of intravenous contrast. IV contrast: 7.5 mL of Gadavist. COMPARISON: 01/24/2017. FINDINGS: Localizer images: Unremarkable. Normal lumbar lordosis. Incidental no made of a hemangioma in the L1 vertebral body. Vertebral bodies maintain normal height, alignment, and bone marrow signal intensity. Intervertebral disc spaces preserved with the exception of mild desiccation at L5-S1 and the presence of an annular fissure. The annular fissure demonstrates enhancement on postcontrast imaging. No other significant degenerative change. No neural foraminal or spinal canal narrowing. Postcontrast imaging demonstrates no suspicious enhancement. No evidence of an epidural collection. Spinal cord ends in good position at the superior endplate of L1. Cauda equina normal morphology. Paraspinal soft tissues within normal limits. Cholelithiasis. IMPRESSION: 1. Focal mild degenerative change at L5-S1 with the presence of an annular fissure and mild disc desiccation. 2. No neural foraminal or spinal canal narrowing. 3. No epidural abscess. Electronically signed by: Chip Landon M.D. 11/03/2017 9:26 PM Dictated Date/Time: 11/03/2017 9:22 PM
--- NOTE | 2017-11-03 21:31 | DIAGNOSTIC IMAGING REPORT ---
THORACIC SPINE COMBO CLINICAL HISTORY: 46 years-old Female presenting with eval for epidural abscess/disc herniation, urinary pressure, blood in urine, elevated white blood cell count, history of lines disease. TECHNIQUE: Multisequence, multiplanar MR imaging of the thoracic spine was performed before and after the administration of intravenous contrast. IV contrast: 7.5 mL of Gadavist. COMPARISON: None. FINDINGS: Localizer images: Unremarkable. Normal thoracic kyphosis. Vertebral bodies maintain normal height, alignment, and bone marrow signal intensity. Intervertebral disc spaces preserved. No abnormal enhancement on postcontrast imaging. No neural foraminal or spinal canal narrowing. Spinal cord normal in morphology and signal intensity. No abnormal enhancement. Axial postcontrast imaging is degraded by motion artifact somewhat limiting evaluation for abnormal enhancement of the spinal cord. A perineural neural cyst. Present on the left at C7-T1. The spinal cord is in good position at the superior endplate of L1. Paraspinal soft tissues within normal limits. IMPRESSION: Essentially normal thoracic spine. Electronically signed by: Chip Landon M.D. 11/03/2017 9:30 PM Dictated Date/Time: 11/03/2017 9:26 PM
[2017-11-03] MEDS ORDERED: MoRPHine SULFATE 4 MG/ML 1 ML CARP\\VIAL IV STA (22:03)
[2017-11-03] MEDS ORDERED: ONDANSETRON INJ 2 MG/ML 2 ML VIAL IV STA (22:03)
--- NOTE | 2017-11-03 22:42 | DIAGNOSTIC IMAGING REPORT ---
ABD/PELVIS WITHOUT FOR STONE CLINICAL HISTORY: 46 years-old Female presenting with left flank eval for stone. TECHNIQUE: Multidetector CT of the abdomen and pelvis was performed without the use of intravenous contrast. IV contrast: None. A dose lowering technique was used consistent with the principles of ALARA (as low as reasonably achievable). COMPARISON: None. CT DOSE (mGy.cm): The estimated cumulative dose is 941.42 mGy.cm. FINDINGS: Local Bulk Driver topogram: Unremarkable. Lung bases: Minimal basilar opacities, likely atelectasis. Normal heart size. No pericardial or pleural effusion. Liver: Normal morphology. Focal fatty infiltration along the fissure for the ligamentum teres. No liver lesion. Patent hepatic vasculature. Biliary: No intrahepatic or extrahepatic biliary ductal dilatation. Gallbladder contains gallstones. Pancreas: Normal. Spleen: Normal. Adrenal glands: Normal. Kidneys and ureters: Hypodensity in the renal collecting systems and proximal ureters consistent with excretion of gadolinium based contrast agent from recent contrast-enhanced MR of the spine. This greatly limits evaluation for renal calculi. Multiple left parapelvic cysts noted. No hydronephrosis. Ureters not dilated. No periureteral fat infiltration to suggest recent passage of a stone. Bladder: Circumferential bladder wall thickening allowing for underdistention. Pelvic organs: Uterus surgically absent. Normal ovaries. Bowel: Diverticulosis of the sigmoid colon. The appendix is normal. No bowel obstruction. Peritoneal cavity: No free fluid or intraperitoneal gas. Lymph nodes: No gross lymphadenopathy allowing for noncontrast technique. Vasculature: Normal noncontrast appearance. Abdominal wall: Normal. Musculoskeletal: Normal. IMPRESSION: 1. Excreted gadolinium contrast in the renal collecting systems from recent contrast-enhanced MR of the spine greatly limits evaluation for nephrolithiasis. Within this limitation, no evidence of obstruction or secondary findings to suggest recent passage of a stone. 2. Circumferential bladder wall thickening concerning for cystitis. Correlate with urinalysis. 3. Diverticulosis. No evidence of diverticulitis. Electronically signed by: Chip Landon M.D. 11/03/2017 10:40 PM Dictated Date/Time: 11/03/2017 10:33 PM
[2017-11-03] MEDS ORDERED: SULF800T23 PO (23:03)
[2017-11-03] MEDS ORDERED: SEPTRA DS HOME PACK 1 EA VIAL PO ONE (23:15)
[2017-11-03] MEDS ORDERED: PHENAZOPYRIDINE HOME PACK 200 MG VIAL PO ONE (23:15)
--- NOTE | 2017-11-03 23:34 | EMERGENCY ROOM VISIT NOTE ---
History Report prepared by Britt: Shikha Matos Under the Supervision of: Dr. Deandre Harding M.D. First contact with patient: 16:18 Chief Complaint: URINARY SYMPTOMS Stated Complaint: URINARY PAIN, BLEEDING Nursing Triage Summary: see triage note History of Present Illness The patient is a 46 year old female who presents to the Emergency Room with complaints of worsening urinary symptoms beginning two weeks ago. The patient reports pain with a full bladder and increased frequency in her urination. The patient states she started to have incontinence and blood in her urine today. She states she had to start wearing a diaper because of her incontinence. The patient denies any numbness or weakness in her legs, fever, fecal incontinence, or vomiting. The patient had a laparoscopic hysterectomy five years ago. She states that after her hysterectomy she started to have urinary problems. She report she has had pain when her bladder is full since her surgery. She was told there were no complications with her surgery despite her constant urinary symptoms. The patient reports she followed up with urologist after the surgery. The patient had a cystoscopy in [place] and also had her urethra dilated three years ago. The urethral dilation seemed to help her symptoms. The patient reports she started to have back problems a year ago. She was diagnosed with a bulging disc a year ago. The patient follows up with Dr. Putnam and reports that she got a steroid shot in her back over a month ago. The patient notes back pain which is relatively constant. The patient was also diagnosed with Lyme 's disease two years ago. She reports she has nerve damage in her legs from the Lyme's disease. She also reports tingling in her right arm and leg from Lyme's disease which is not present currently. The patient has a history of IBS. Source of History: patient Onset: two weeks ago Position: other (generalized) Quality: other (urinary symptoms) Timing: worsening Associated Symptoms: + back pain, + urinary symptoms, No fevers, No weakness , No numbness Review of Systems See HPI for pertinent positives & negatives. A total of 10 systems reviewed and were otherwise negative. Past Medical & Surgical Medical Problems: (1) IBS (irritable bowel syndrome) (2) Lyme disease Family History Patient reports no known family medical history. Social History Smoking Status: Current Every Day Smoker Marital Status: Housing Status: lives with family Occupation Status: employed Current/Historical Medications Scheduled Bqxwple-Wlfzyarfjvgld-Hcdlievt (Excedrin Migraine), 1-2 TABS PO PRN UD B-Complex W/Biotin & Folic Aci (Vitamin B50 Complex Tr), 1 TAB PO DAILY Cholecalciferol (Vitamin D), 1 TAB PO DAILY Ibuprofen (Advil), 600-800 MG PO Q6H Sulfa/Trimethoprim (Bactrim Ds 800MG/160MG), 1 TAB PO BID Turmeric (Curcuma Longa) (Turmeric), 1 CAP PO DAILY [Amberen], 2 TABS PO DAILY [Lystine], 1 TAB PO DAILY Allergies Coded Allergies: No Known Allergies (Verified , 08/21/17) Uncoded Allergies: SEASONAL AND PET DANDER IS IRRRITATING-NO TRT. (Allergy, Unknown, 11/14/02) Physical Exam Vital Signs Date Time Temp Pulse Resp B/P (MAP) Pulse Ox O2 Delivery O2 Flow Rate FiO2 11/03/17 22:18 88 16 125/79 96 Room Air 11/03/17 21:14 96 16 138/75 97 Room Air 11/03/17 18:11 96 18 144/95 97 Room Air 11/03/17 17:25 37.3 11/03/17 16:13 36.9 103 20 159/110 98 Room Air Physical Exam Constitutional: Vital signs reviewed. Eyes: Pupils are equal round reactive to light. Conjunctiva are noninjected. ENT: Pharynx is clear without erythema or exudate. Mucous membranes are moist. Neck supple without meningeal signs. Respiratory: Clear to auscultation bilaterally. Breath sounds are equal bilaterally. Cardiovascular: Regular rate and rhythm. No rubs or gallops. GI: Soft, nondistended and nontender. Bowel sounds are present. Musculoskeletal: No CVA tenderness. No peripheral edema. No lower extremity tenderness. No midline tenderness to thoracic, lumbar or sacral spine. Integumentary: No cyanosis. Neurological: The patient is awake and alert. No focal deficits. Sharp and light touch sensation intact throughout lower extremities, no saddle anesthesia , normal rectal tone, 2+ DTR ankles and knees. 5/5 motor strength of lower extremities. Psychiatric: Normal affect. Medical Decision & Procedures ER Provider Diagnostic Interpretation: Radiology results as stated below per my review and the radiologist's interpretation: LUMBAR SPINE COMBINATION FINDINGS: Localizer images: Unremarkable. Normal lumbar lordosis. Incidental no made of a hemangioma in the L1 vertebral body. Vertebral bodies maintain normal height, alignment, and bone marrow signal intensity. Intervertebral disc spaces preserved with the exception of mild desiccation at L5-S1 and the presence of an annular fissure. The annular fissure demonstrates enhancement on postcontrast imaging. No other significant degenerative change. No neural foraminal or spinal canal narrowing. Postcontrast imaging demonstrates no suspicious enhancement. No evidence of an epidural collection. Spinal cord ends in good position at the superior endplate of L1. Cauda equina normal morphology. Paraspinal soft tissues within normal limits. Cholelithiasis. IMPRESSION: 1. Focal mild degenerative change at L5-S1 with the presence of an annular fissure and mild disc desiccation. 2. No neural foraminal or spinal canal narrowing. 3. No epidural abscess. Electronically signed by: Chip Landon M.D. THORACIC SPINE COMBO FINDINGS: Localizer images: Unremarkable. Normal thoracic kyphosis. Vertebral bodies maintain normal height, alignment, and bone marrow signal intensity. Intervertebral disc spaces preserved. No abnormal enhancement on postcontrast imaging. No neural foraminal or spinal canal narrowing. Spinal cord normal in morphology and signal intensity. No abnormal enhancement. Axial postcontrast imaging is degraded by motion artifact somewhat limiting evaluation for abnormal enhancement of the spinal cord. A perineural neural cyst. Present on the left at C7-T1. The spinal cord is in good position at the superior endplate of L1. Paraspinal soft tissues within normal limits. IMPRESSION: Essentially normal thoracic spine. Electronically signed by: Chip Landon M.D. Laboratory Results 11/03/17 17:00 Red Blood Count 4.59, Mean Corpuscular Volume 86.1, Mean Corpuscular Hemoglobin 28.3, Mean Corpuscular Hemoglobin Concent 32.9, Mean Platelet Volume 9.2, Neutrophils (%) (Auto) 77.3, Lymphocytes (%) (Auto) 14.9, Monocytes (%) (Auto) 6.6, Eosinophils (%) (Auto) 0.7, Basophils (%) (Auto) 0.2, Neutrophils # (Auto) 11.28, Lymphocytes # (Auto) 2.18, Monocytes # (Auto) 0.96, Eosinophils # (Auto) 0.10, Basophils # (Auto) 0.03 11/03/17 17:00 Test 11/03/17 16:50 11/03/17 17:00 11/03/17 18:15 Urine Color YELLOW Urine Appearance CLEAR (CLEAR) Urine pH 7.5 (4.5-7.5) Urine Specific [place] 1.007 (1.000-1.030) Urine Protein 1+ (NEG) Urine Glucose (UA) NEG (NEG) Urine Ketones NEG (NEG) Urine Occult Blood 3+ (NEG) Urine Nitrite NEG (NEG) Urine Bilirubin NEG (NEG) Urine Urobilinogen NEG (NEG) Urine Leukocyte Esterase TRACE (NEG) Urine WBC (Auto) >30 /hpf (0-5) Urine RBC (Auto) >30 /hpf (0-4) Urine Hyaline Casts (Auto) 1-5 /lpf (0-5) Urine Epithelial Cells (Auto) 0-5 /lpf (0-5) Urine Bacteria (Auto) NEG (NEG) Urine Yeast (Auto) (NONE PRSENT) White Blood Count 14.59 K/uL (4.8-10.8) Red Blood Count 4.59 M/uL (4.2-5.4) Hemoglobin 13.0 g/dL (12.0-16.0) Hematocrit 39.5 % (37-47) Mean Corpuscular Volume 86.1 fL (80-100) Mean Corpuscular Hemoglobin 28.3 pg (25-34) Mean Corpuscular Hemoglobin Concent 32.9 g/dl (32-36) Platelet Count 414 K/uL (130-400) Mean Platelet Volume 9.2 fL (7.4-10.4) Neutrophils (%) (Auto) 77.3 % Lymphocytes (%) (Auto) 14.9 % Monocytes (%) (Auto) 6.6 % Eosinophils (%) (Auto) 0.7 % Basophils (%) (Auto) 0.2 % Neutrophils # (Auto) 11.28 K/uL (1.4-6.5) Lymphocytes # (Auto) 2.18 K/uL (1.2-3.4) Monocytes # (Auto) 0.96 K/uL (0.11-0.59) Eosinophils # (Auto) 0.10 K/uL (0-0.5) Basophils # (Auto) 0.03 K/uL (0-0.2) RDW Standard Deviation 42.7 fL (36.4-46.3) RDW Coefficient of Variation 13.5 % (11.5-14.5) Immature Granulocyte % (Auto) 0.3 % Immature Granulocyte # (Auto) 0.04 K/uL (0.00-0.02) Anion Gap 6.0 mmol/L (3-11) Est Creatinine Clear Calc Drug Dose 87.9 ml/min Estimated GFR () 98.0 Estimated GFR (Non- 84.6 BUN/Creatinine Ratio 17.8 (10-20) Calcium Level 9.3 mg/dl (8.5-10.1) Influenza Type A (RT-PCR) Neg for Influ A (NEG) Influenza Type B (RT-PCR) Neg for Influ B (NEG) Laboratory results as reviewed by me. Medications Administered Medications (Trade) Dose Ordered Sig/Analia Route Start Time Stop Time Status Last Admin Dose Admin Ketorolac Tromethamine (Toradol Inj) 10 mg NOW STAT IV 11/03/17 17:45 11/03/17 17:47 DC 11/03/17 18:07 10 MG Ceftriaxone Sodium (Rocephin Inj) 1 gm NOW STAT IV 11/03/17 17:45 11/03/17 17:47 DC 11/03/17 18:07 1 GM Lorazepam (Ativan Inj) 1 mg ONE STAT IV 11/03/17 18:01 11/03/17 18:02 DC 11/03/17 19:20 1 MG Morphine Sulfate (MoRPHine SULFATE INJ) 4 mg NOW STAT IV 11/03/17 22:03 11/03/17 22:05 DC 11/03/17 22:16 4 MG Ondansetron HCl (Zofran Inj) 4 mg NOW STAT IV 11/03/17 22:03 11/03/17 22:05 DC 11/03/17 22:16 4 MG Trimethoprim/ Sulfamethoxazole (Sulfameth/ Trimeth Ds 800/ 160MG Home Pack) 1 homepack UD ONCE PO 11/03/17 23:15 11/03/17 23:16 DC 11/03/17 23:18 1 HOMEPACK Phenazopyridine HCl (Phenazopyridine HCl 200MG Home Pack) 1 homepack UD ONCE PO 11/03/17 23:15 11/03/17 23:16 DC 2/2/18 23:18 1 HOMEPACK ED Course 1620: The patient was evaluated in room C1B. A complete history and physical exam was performed. 1745: Ordered Rocephin Inj 1 gm IV, Toradol Inj 10 mg IV. 1758: The patient is now states she feels warm and her back pain is getting worse. The patient states she feels like she is coming down with flu. 180: Ordered Ativan Inj 1 mg IV. 2044: Ordered Gadobutrol 7.5 mmol IV. 2200: The patient is requesting to have her kidneys checked to make sure she doesn't have a stone. 2202: Ordered Zofran Inj 4 mg IV, Morphine Sulfate 4 mg IV. 2300: I updated on test results. 5: Ordered Phenazopyridine HCl 1 homepack PO, Trimethoprim/Sulfamethoxazole 1 homepack PO. 2318: Upon reevaluation, the patient appeared to have improvement of her symptoms. I discussed tonight's findings with her. She verbalized agreement of the treatment plan. The patient was discharged home. Medical Decision This is a 46-year-old female who presents with urinary symptoms, hematuria, incontinence and back pain. Differential diagnoses considered include UTI, interstitial cystitis, pyelonephritis, bladder mass, lumbar disc disease, cauda equina syndrome, epidural abscess. I did perform a limited focused review of portions of the patient's old chart on the electronic medical record. The patient had L5 s1 epidural steroid injection September [address] Putnam. MRI of lumbar spine December 2016 showed anular fissure and small central disc profusion L5 S1. I did evaluate the patient as noted above. The patient has a history of chronic urinary symptoms and has developed worsening urinary symptoms over the past 2 weeks. She has incontinence, hematuria, frequency and pain with urination. She has had similar symptoms in the past since her hysterectomy and has seen a urologist for this. She also has been diagnosed with lumbar disc disease or some an MRI last year. She did recently have a epidural steroid injection on the of last month. Her symptoms and exam, however, do not necessarily to a spinal cord issue at this time. She is not febrile. She has no saddle anesthesia, numbness or weakness to her lower extremities and has normal DTRs. Her incontinence is likely a manifestation of her urinary tract infection. The epidural injection was over a month and a half ago. The pain in her back is on the left lower side and she has no midline pain or tenderness. IV access was established. I did order and personally review the patient's urinalysis as described above. She does have a urinary tract infection. A urine culture was sent. I did treat her with ceftriaxone IV. She was also given Toradol 10 mg IV for pain. She had persistent pain and was given morphine and Zofran IV. I did order and review the patient's blood work as noted in the electronic medical record. Her white blood cell count is elevated. The patient also stated that she felt like she was developing a fever and did not feel well. Because of this I went ahead and ordered a flu test which was negative. I also ordered an MRI of her thoracic and lumbar spine because of her elevated white count and developing fever. This did not show any evidence of epidural abscess or acute abnormality. Her was concerned about a kidney stone and requested that we image her for that as well. I did order a CT of the abdomen and pelvis. I did review the images myself as well as the radiology report as described above. There is no evidence of kidney stone. I did discuss the test results with the patient. She was discharged with a prescription for Bactrim for 10 days. She was advised follow closely with her doctor and urologist and discharged in good condition. She was also given a home pack for Pyridium. Medication Reconcilliation Current Medication List: was personally reviewed by me Blood Pressure Screening Patient's blood pressure: Elevated blood pressure Blood pressure disposition: Referred to PCP Impression Primary Impression: Urinary tract infection Additional Impressions: Low back pain Hematuria Urinary incontinence Scribe Attestation The scribe's documentation has been prepared under my direct and personally reviewed by me in its entirety. I confirm that the note above accurately reflects all work, treatment, procedures, and medical decision making performed by me. Departure Information Dispostion Home / Self-Care Prescriptions Sulfa/Trimethoprim (Bactrim Ds 800MG/160MG) Tab 1 TAB PO BID, #18 TAB Prov: Deandre Harding M.D. 11/03/17 Referrals No Doctor, Assigned (PCP) Forms HOME CARE DOCUMENTATION FORM, IMPORTANT VISIT INFORMATION Patient Instructions ED UTI Cystitis Female, My [facility] Additional Instructions You have been examined and treated today on an emergency basis only. This is not a substitute for, or an effort to provide, complete comprehensive medical care. It is impossible to recognize and treat all injuries or illnesses in a single emergency department visit. It is therefore important that you follow up closely with your physician. Call as soon as possible for an appointment. Return for worsening symptoms or if you develop fever, vomiting, abdominal pain , loss of control of your bowel, numbness or weakness to your legs, numbness to your private area, or any other concerning symptoms. Problem Qualifiers Primary Impression: Urinary tract infection Urinary tract infection type: acute cystitis Hematuria presence: with hematuria Qualified Codes: N30.01 - Acute cystitis with hematuria Additional Impressions: Low back pain Chronicity: chronic Back pain laterality: left Sciatica presence: without sciatica Qualified Codes: M54.5 - Low back pain; G89.29 - Other chronic pain Hematuria Hematuria type: unspecified type Qualified Codes: R31.9 - Hematuria, unspecified Urinary incontinence Urinary Incontinence type: unspecified incontinence Qualified Codes: R32 - Unspecified urinary incontinence
[2017-11-03 23:42] VITALS: BP 127/79; PULSE 82; O2SAT 93
== END 2017-11-03 23:43 | disposition home or self-care (01) ==
LOC: C.EDB 16:11 → C.EDC 23:43
DX: N39.0 Urinary tract infection, site not specified (principal); M51.16 Intervertebral disc disorders with radiculopathy, lumbar region; F17.200 Nicotine dependence, unspecified, uncomplicated; D72.829 Elevated white blood cell count, unspecified; R03.0 Elevated blood-pressure reading, without diagnosis of hypertension; Z90.710 Acquired absence of both cervix and uterus

== ENCOUNTER 2017-11-10 14:03 | Emergency (ER) | payer OTHER ==
[~2017-11-10] VITALS: Ht 160 cm; Wt 76.4 kg
[~2017-11-10 14:03] MED LIST changes: +AMBEREN PO; +ASPI-390 PO; +B-CO1TAB21 PO; +CHOL400T PO; +IBUP-1050 PO; -IBUP-1450 PO; +SULF800T23 PO; +TURM1CAP2 PO; +[UNRECOGNIZED DRUG - OTHER] PO
[2017-11-10 14:19] VITALS: TEMP 36.8; Ht 160 cm; Wt 76.4 kg
[2017-11-10] MEDS ORDERED: SODIUM CHLORIDE 0.9% 1000ML 2,000 ML IV STA (16:52)
[2017-11-10] MEDS ORDERED: METOCLOPRAMIDE HCL INJ 5 MG/ML 2 ML VIAL IV STA (16:52)
[2017-11-10] MEDS ORDERED: DiphenhydrAMINE HCL 50 MG/ML VIAL IV STA (16:52)
--- NOTE | 2017-11-10 17:04 | EMERGENCY ROOM VISIT NOTE ---
History Report prepared by Britt: Anali Brooks Under the Supervision of: Dr. Renny Bragg M.D. First contact with patient: 16:49 Chief Complaint: HEADACHE Stated Complaint: SEVERE HEAD PAIN History of Present Illness The patient is a 46 year old female who presents to the Emergency Room with complaints of severe head pain that began progressively a couple of days ago and kept getting progressively worse. She states she woke up feeling like knives were stabbing her. She reports she took two Excedrin Migraine that "took the edge off." She has associated nausea and blurred vision. The patient states she has had different kinds of headaches every day for a year. She also reports she does not like taking a lot of medication and only saves it for "a bad day" and only takes two Excedrin migraines to alleviate the pain. She notes that she feels like someone "stuck a bridget in her ear and feels like there is something on the back of her neck that moves." She states she got her first migraine 19 years ago and she would just treat it with medication. The patient was diagnosed with Lyme's Disease two years ago and the headaches started getting worse, but they are different kind than the one she is experiencing today. Source of History: patient Onset: couple of days ago Position: head Symptom Intensity: severe Quality: stabbing Modifying Factors (Relieving): other (Excedrin Migraine) Associated Symptoms: + nausea (Positive blurred vision ) Review of Systems See HPI for pertinent positives and negatives. A total of ten systems were reviewed and were otherwise negative. Past Medical & Surgical Medical Problems: (1) IBS (irritable bowel syndrome) (2) Lyme disease Family History Patient reports no known family medical history. Social History Smoking Status: Never Smoker Marital Status: Housing Status: lives with family Occupation Status: employed Current/Historical Medications Scheduled Rilwnsf-Mhwateahlnaio-Vjekhgxk (Excedrin Migraine), 1-2 TABS PO PRN UD B-Complex W/Biotin & Folic Aci (Vitamin B50 Complex Tr), 1 TAB PO DAILY Cholecalciferol (Vitamin D), 1 TAB PO DAILY Ibuprofen (Advil), 600-800 MG PO Q6H Sulfa/Trimethoprim (Bactrim Ds 800MG/160MG), 1 TAB PO BID Turmeric (Curcuma Longa) (Turmeric), 1 CAP PO DAILY Scheduled PRN [Lystine], 1 TAB PO DAILY PRN for Allergies Coded Allergies: No Known Allergies (Verified , 08/21/17) Uncoded Allergies: SEASONAL AND PET DANDER IS IRRRITATING-NO TRT. (Allergy, Unknown, 11/14/02) Physical Exam Vital Signs Date Time Temp Pulse Resp B/P (MAP) Pulse Ox O2 Delivery O2 Flow Rate FiO2 11/10/17 21:35 81 20 121/64 98 Room Air 11/10/17 19:33 73 17 11/10/17 19:30 129/79 11/10/17 19:20 130/78 11/10/17 18:33 85 16 11/10/17 18:31 126/60 11/10/17 18:30 89 18 126/60 99 Room Air 11/10/17 18:03 89 15 11/10/17 18:00 76 11/10/17 18:00 125/74 11/10/17 17:28 82 16 142/81 96 Room Air 11/10/17 14:19 36.8 99 18 148/96 99 Room Air Physical Exam GENERAL: Awake, alert, uncomfortable, anxious-appearing, in no distress HENT: Normocephalic, atraumatic. Oropharynx unremarkable. Dry mucous membranes to the lower pharynx EYES: Normal conjunctiva. Sclera non-icteric. NECK: Supple. No nuchal rigidity. FROM. No JVD. RESPIRATORY: Clear to auscultation. CARDIAC: Regular rate, normal rhythm. Extremities warm and well perfused. Pulses equal. ABDOMEN: Soft, non-distended. No tenderness to palpation. No rebound or guarding. No masses. RECTAL: Deferred. MUSCULOSKELETAL: Chest examination reveals no tenderness. The back is symmetrical on inspection without obvious abnormality. There is no CVA tenderness to palpation. No joint edema. LOWER EXTREMITIES: Calves are equal size bilaterally and non-tender. No edema. No discoloration. NEURO: Normal sensorium. No sensory or motor deficits noted. Normal cerebellar function with negouu-io-xzgy, alternating palms, upnz-lv-kznk SKIN: No rash or jaundice noted. Medical Decision & Procedures ER Provider Diagnostic Interpretation: Radiology results as stated below per my review and radiologist interpretation: HEAD WITHOUT CONTRAST (CT) CLINICAL HISTORY: 46 years-old Female presenting with headache. TECHNIQUE: Multidetector CT imaging of the head was performed without the use of intravenous contrast. IV contrast: None. A dose lowering technique was used consistent with the principles of ALARA (as low as reasonably achievable). COMPARISON: Brain MR from 12/12/2016. CT DOSE (mGy.cm): The estimated cumulative dose is 537.48 mGy.cm. FINDINGS: Brainer topogram: Unremarkable. Ventricles and sulci normal in size. Brain parenchyma normal in appearance with preserved frankel-white differentiation. No mass effect or midline shift. No hemorrhage or acute territorial infarct. No extra-axial fluid collection. Paranasal sinuses and mastoid air cells clear. Calvarium intact. IMPRESSION: 1. No acute intracranial abnormality. Electronically signed by: Chip Landon M.D. 11/10/2017 5:48 PM Dictated Date/Time: 11/10/2017 5:46 PM BRAIN COMBO CLINICAL HISTORY: refractory migraine headache COMPARISON STUDY: 12/12/2016 TECHNIQUE: Utilizing a 1.5 Nadine magnet and dedicated coil, multiplanar, multiecho imaging of the brain was performed pre and postcontrast administration. IV administration of 8 mL of Gadavist contrast was uneventful. FINDINGS: Diffusion images are negative for an acute ischemic event. No abnormal postcontrast enhancement. Coronal FLAIR images demonstrate several foci of increased signal within the periventricular deep white matter regions. Small foci are identified in the frontal lobe regions bilaterally as well as in the mid left paraventricular region. No significant foci of increased signal are seen within the optic radiations. The ventricular system is midline. Sella and parasellar regions are unremarkable. IMPRESSION: 1. Unchanged examination is compared to the prior study of 12/12/2016. 2. No evidence for an acute intracranial ischemic process. 3. Several small nonspecific foci of increased signal unchanged from the prior study. This may be consistent with the patient's history of chronic headache, versus chronic small vessel change. 4. No evidence for new interval or acute process as compared to the prior exams. The above report was generated using voice recognition software. It may contain grammatical, syntax or spelling errors. Electronically signed by: Fabian Medrano M.D. 11/10/2017 8:49 PM Dictated Date/Time: 11/10/2017 8:44 PM Laboratory Results 11/10/17 17:25 Red Blood Count 4.49, Mean Corpuscular Volume 86.2, Mean Corpuscular Hemoglobin 28.3, Mean Corpuscular Hemoglobin Concent 32.8, Mean Platelet Volume 9.0, Neutrophils (%) (Auto) 64.2, Lymphocytes (%) (Auto) 26.1, Monocytes (%) (Auto) 7.5, Eosinophils (%) (Auto) 1.6, Basophils (%) (Auto) 0.5, Neutrophils # (Auto) 5.17, Lymphocytes # (Auto) 2.10, Monocytes # (Auto) 0.60, Eosinophils # (Auto) 0.13, Basophils # (Auto) 0.04 11/10/17 17:25 Test 11/10/17 17:25 11/10/17 19:20 White Blood Count 8.05 K/uL (4.8-10.8) Red Blood Count 4.49 M/uL (4.2-5.4) Hemoglobin 12.7 g/dL (12.0-16.0) Hematocrit 38.7 % (37-47) Mean Corpuscular Volume 86.2 fL (80-100) Mean Corpuscular Hemoglobin 28.3 pg (25-34) Mean Corpuscular Hemoglobin Concent 32.8 g/dl (32-36) Platelet Count 400 K/uL (130-400) Mean Platelet Volume 9.0 fL (7.4-10.4) Neutrophils (%) (Auto) 64.2 % Lymphocytes (%) (Auto) 26.1 % Monocytes (%) (Auto) 7.5 % Eosinophils (%) (Auto) 1.6 % Basophils (%) (Auto) 0.5 % Neutrophils # (Auto) 5.17 K/uL (1.4-6.5) Lymphocytes # (Auto) 2.10 K/uL (1.2-3.4) Monocytes # (Auto) 0.60 K/uL (0.11-0.59) Eosinophils # (Auto) 0.13 K/uL (0-0.5) Basophils # (Auto) 0.04 K/uL (0-0.2) RDW Standard Deviation 43.2 fL (36.4-46.3) RDW Coefficient of Variation 13.7 % (11.5-14.5) Immature Granulocyte % (Auto) 0.1 % Immature Granulocyte # (Auto) 0.01 K/uL (0.00-0.02) Anion Gap 3.0 mmol/L (3-11) Est Creatinine Clear Calc Drug Dose 95.5 ml/min Estimated GFR () 116.4 Estimated GFR (Non- 100.4 BUN/Creatinine Ratio 31.8 (10-20) Calcium Level 9.1 mg/dl (8.5-10.1) Total Bilirubin 0.3 mg/dl (0.2-1) Direct Bilirubin < 0.1 mg/dl (0-0.2) Aspartate Amino Transf (AST/SGOT) 12 U/L (15-37) Alanine Aminotransferase (ALT/SGPT) 23 U/L (12-78) Alkaline Phosphatase 74 U/L (45-117) Total Protein 8.2 gm/dl (6.4-8.2) Albumin 4.1 gm/dl (3.4-5.0) Lipase 143 U/L (73-393) Urine Color YELLOW Urine Appearance CLEAR (CLEAR) Urine pH 6.0 (4.5-7.5) Urine Specific [place] 1.010 (1.000-1.030) Urine Protein NEG (NEG) Urine Glucose (UA) NEG (NEG) Urine Ketones TRACE (NEG) Urine Occult Blood NEG (NEG) Urine Nitrite NEG (NEG) Urine Bilirubin NEG (NEG) Urine Urobilinogen NEG (NEG) Urine Leukocyte Esterase NEG (NEG) Urine Test NEG (NEG) Laboratory results reviewed by me Medications Administered Medications (Trade) Dose Ordered Sig/Analia Route Start Time Stop Time Status Last Admin Dose Admin Sodium Chloride 2,000 ml @ 999 mls/hr Q2H1M STAT IV 11/10/17 16:52 11/10/17 18:52 DC 11/10/17 17:24 999 MLS/HR Metoclopramide HCl (Reglan Inj) 10 mg NOW STAT IV 11/10/17 16:52 11/10/17 16:57 DC 11/10/17 17:26 10 MG Diphenhydramine HCl (Benadryl Inj) 25 mg NOW STAT IV 11/10/17 16:52 11/10/17 16:57 DC 11/10/17 17:24 25 MG Lorazepam (Ativan Tab) 1 mg NOW STAT SL 11/10/17 19:59 11/10/17 20:00 DC 11/10/17 20:03 1 MG Dexamethasone Sodium Phosphate (Dexamethasone Inj Pf) 10 mg NOW ONCE IV 11/10/17 20:00 11/10/17 20:01 DC 11/10/17 20:04 10 MG ED Course 1651: The patient was evaluated in room B3. A complete history and physical exam was performed. 1837: I checked on the patient at this time. She feels a little better and will have an MRI done. 2112: I reevaluated the patient. Discussed results and discharge instructions: She verbalized understanding and agreement. The patient is ready for discharge. Medical Decision I reviewed the patient's past medical history, medications, and the nursing notes as described above. Differential diagnosis: Etiologies such as migraine headache, meningitis, sinusitis, CO exposure, ICH, SAH, infection, tumor, headache, sinus thrombosis, arterial dissection, as well as others were entertained. The patient is a 46 y/o woman with a pmhx of recurrent migraines followed by neurology who presents to the emergency department with progressively worsening migraine over the past 2 days per HPI. On arrival the patient is uncomfortable but in NAD, AFVSS. Neuro intact including normal cerebellar function with finger -to-nose, alternating palms, dung-bw-cfyu. Labs unremarkable. CT head unremarkable. MRI brain unchanged. Patient feeling improved after migraine cocktail, IVF, and dose of dexamethasone. Given reassuring w/u sx most c/w patient's chronic migraines for which she does not regularly take medications. Findings and plan for follow-up reviewed with patient. Patient agreeable and d/c 'd per discharge instructions. Medication Reconcilliation Current Medication List: was personally reviewed by me Blood Pressure Screening Patient's blood pressure: Elevated blood pressure Blood pressure disposition: Elevated BP felt to be situational Impression Primary Impression: Migraine headache Scribe Attestation The scribe's documentation has been prepared under my direction and personally reviewed by me in its entirety. I confirm that the note above accurately reflects all work, treatment, procedures, and medical decision making performed by me. Departure Information Dispostion Home / Self-Care Referrals No Doctor, Assigned (PCP) Forms HOME CARE DOCUMENTATION FORM, IMPORTANT VISIT INFORMATION Patient Instructions ED Headache Migraine, [facility] Additional Instructions Please follow up with your neurologist next week for re-evaluation. Your symptoms are most likely related to your migraine headaches. Otherwise, your exam, lab results, CT scan and MRI of your brain did not show significant changes or signs of an emergent condition at this time. Continue your current medications. Drink plenty of fluids to ensure hydration. Return to the emergency department for worsening symptoms as described in the accompanying instructions.
[2017-11-10 17:46] LABS: BASO % 0.5 %; BASO ABS # 0.04 K/uL (0-0.2); EOS % 1.6 %; EOS ABS # 0.13 K/uL (0-0.5); HEMATOCRIT 38.7 % (37-47); HEMOGLOBIN 12.7 g/dL (12.0-16.0); IG# 0.01 K/uL (0.00-0.02); LYMPH % 26.1 %; MEAN CELL VOLUME 86.2 fL (80-100); MEAN CORPUSCULAR HEMOGLOBIN 28.3 pg (25-34); MEAN CORPUSCULAR HGB CONC 32.8 g/dl (32-36); MONO % 7.5 %; NEUT % 64.2 %; NEUT ABS # 5.17 K/uL (1.4-6.5); PLATELET COUNT 400 K/uL (130-400); RED CELL DISTRIBUTION WIDTH CV 13.7 % (11.5-14.5); RED CELL DISTRIBUTION WIDTH SD 43.2 fL (36.4-46.3); WHITE BLOOD COUNT 8.05 K/uL (4.8-10.8)
--- NOTE | 2017-11-10 17:49 | DIAGNOSTIC IMAGING REPORT ---
HEAD WITHOUT CONTRAST (CT) CLINICAL HISTORY: 46 years-old Female presenting with headache. TECHNIQUE: Multidetector CT imaging of the head was performed without the use of intravenous contrast. IV contrast: None. A dose lowering technique was used consistent with the principles of ALARA (as low as reasonably achievable). COMPARISON: Brain MR from 12/12/2016. CT DOSE (mGy.cm): The estimated cumulative dose is 537.48 mGy.cm. FINDINGS: Forging Press Operator topogram: Unremarkable. Ventricles and sulci normal in size. Brain parenchyma normal in appearance with preserved frankel-white differentiation. No mass effect or midline shift. No hemorrhage or acute territorial infarct. No extra-axial fluid collection. Paranasal sinuses and mastoid air cells clear. Calvarium intact. IMPRESSION: 1. No acute intracranial abnormality. Electronically signed by: Chip Landon M.D. 11/10/2017 5:48 PM Dictated Date/Time: 11/10/2017 5:46 PM
[2017-11-10 18:02] LABS: ALBUMIN 4.1 gm/dl (3.4-5.0); ALT/SGPT 23 U/L (12-78); AST/SGOT 12 U/L (15-37); BLOOD UREA NITROGEN 23 mg/dl (7-18); CALCIUM 9.1 mg/dl (8.5-10.1); CARBON DIOXIDE 30 mmol/L (21-32); CREATININE 0.72 mg/dl (0.60-1.20); GLUCOSE 89 mg/dl (70-99); LIPASE 143 U/L (73-393); POTASSIUM 3.7 mmol/L (3.5-5.1); SODIUM 136 mmol/L (136-145)
[2017-11-10 18:05] LABS: ALKALINE PHOSPHATASE 74 U/L (45-117); TOTAL PROTEIN 8.2 gm/dl (6.4-8.2)
[2017-11-10] MEDS ORDERED: LORAZEPAM 1 MG TAB SL STA (19:59)
[2017-11-10] MEDS ORDERED: DEXAMETHASONE **PF** INJ 10 MG/ML VIAL IV ONE (20:00)
[2017-11-10] MEDS ORDERED: GADAVIST IV PRN (20:45)
--- NOTE | 2017-11-10 20:50 | DIAGNOSTIC IMAGING REPORT ---
BRAIN COMBO CLINICAL HISTORY: refractory migraine headache COMPARISON STUDY: 12/12/2016 TECHNIQUE: Utilizing a 1.5 Nadine magnet and dedicated coil, multiplanar, multiecho imaging of the brain was performed pre and postcontrast administration. IV administration of 8 mL of Gadavist contrast was uneventful. FINDINGS: Diffusion images are negative for an acute ischemic event. No abnormal postcontrast enhancement. Coronal FLAIR images demonstrate several foci of increased signal within the periventricular deep white matter regions. Small foci are identified in the frontal lobe regions bilaterally as well as in the mid left paraventricular region. No significant foci of increased signal are seen within the optic radiations. The ventricular system is midline. Sella and parasellar regions are unremarkable. IMPRESSION: 1. Unchanged examination is compared to the prior study of 12/12/2016. 2. No evidence for an acute intracranial ischemic process. 3. Several small nonspecific foci of increased signal unchanged from the prior study. This may be consistent with the patient's history of chronic headache, versus chronic small vessel change. 4. No evidence for new interval or acute process as compared to the prior exams. The above report was generated using voice recognition software. It may contain grammatical, syntax or spelling errors. Electronically signed by: Fabian Medrano M.D. 11/10/2017 8:49 PM Dictated Date/Time: 11/10/2017 8:44 PM
[2017-11-10 21:35] VITALS: BP 121/64; PULSE 81; O2SAT 98
== END 2017-11-10 21:49 | disposition home or self-care (01) ==
LOC: C.EDB 14:04
DX: G43.909 Migraine, unspecified, not intractable, without status migrainosus (principal); R03.0 Elevated blood-pressure reading, without diagnosis of hypertension; Z86.19 Personal history of other infectious and parasitic diseases; Z91.048 Other nonmedicinal substance allergy status

== ENCOUNTER → 2017-12-26 | Outpatient (CLI) | payer OTHER ==
[~2017-12-26] MED LIST changes: -AMBEREN PO; -SULF800T23 PO
[2017-12-31 19:21] LABS: ANA SCREEN TC 249X POSITIVE (NEGATIVE); ANTI-SS-A <1.0 NEG AI (<1.0 NEG); ANTI-SS-B <1.0 NEG AI (<1.0 NEG); ANTICARDIOLIPID AB IGA <11 APL (< = 11); COMPLEMENT C3 TC 44859W 141 MG/DL (90-180); COMPLEMENT C4 TC 44982E 35 MG/DL (16-47); MICROSOMAL AB <1 IU/ML (<9)
== END | disposition home or self-care (01) ==
LOC: C.LAB1850 09:03
PROVIDERS: ATTEND Internal Medicine Rheumatology
DX: M25.50 Pain in unspecified joint (principal); Z86.19 Personal history of other infectious and parasitic diseases; R76.8 Other specified abnormal immunological findings in serum; M79.1 Myalgia; E55.9 Vitamin D deficiency, unspecified

== ENCOUNTER → 2018-05-02 | Outpatient (CLI) | payer OTHER | END | disposition home or self-care (01) | LOC: C.LABBFT 08:00 | PROVIDERS: ATTEND Nurse Practitioner | DX: N39.0 Urinary tract infection, site not specified (principal) ==

== ENCOUNTER → 2018-05-04 | Outpatient (CLI) | payer OTHER ==
--- NOTE | 2018-05-04 16:29 | DIAGNOSTIC IMAGING REPORT ---
ULTRASOUND OF THE PELVIS CLINICAL HISTORY: Pelvic pain COMPARISON STUDY: Pelvic CT dated 11/03/2017. TECHNIQUE: Real-time, grayscale, and color flow sonography of the pelvis is performed both transabdominally and endovaginally. Images are reviewed in the transverse and longitudinal planes. FINDINGS: Uterus: The uterus is surgically absent Ovaries: The ovaries were not visualized. Pelvis: There is no free fluid in the cul-de-sac. No concerning adnexal lesion is seen. IMPRESSION: 1. No acute abnormality is identified in the pelvis. 2. The uterus is surgically absent. 3. The ovaries were not visualized. Electronically signed by: Cristian Valles M.D. 05/04/2018 4:28 PM Dictated Date/Time: 05/04/2018 4:26 PM
== END | disposition home or self-care (01) ==
LOC: C.ULTR 15:36
PROVIDERS: ATTEND Nurse Practitioner
DX: R10.2 Pelvic and perineal pain (principal)

== ENCOUNTER → 2018-05-08 | Outpatient (CLI) | payer OTHER | END | disposition home or self-care (01) | LOC: C.PAPS 14:50 | PROVIDERS: ATTEND Obstetrics & Gynecology | DX: Z12.4 Encounter for screening for malignant neoplasm of cervix (principal) ==

== ENCOUNTER → 2018-05-08 | Outpatient (CLI) | payer OTHER | END | disposition home or self-care (01) | LOC: C.LAB 16:44 | PROVIDERS: ATTEND Obstetrics & Gynecology | DX: N95.1 Menopausal and female climacteric states (principal) ==

== ENCOUNTER 2018-12-14 09:29 | Observation (INO) ==
--- NOTE | 2018-12-11 09:12 | Anesthesiology Consultation ---
Date of Service December 11, 2018 Assessment & Plan (1) Encounter for pre-operative examination: Chart Review Chart Review: Acceptable Risk for Surgery (PENDING SURGEON-ORDERED PREOP LABS (CBC, LFTS)) and Patient NOT seen in Pre Admission Testing History Surgery Operation Date: 12/14/18 09:20 Proposed Procedures p Laparoscopic Cholecystectomy - Robe Mc MD, FACS Height/Weight Height: 5 ft 3 in Weight: 74.843 kg Allergies Allergy/AdvReac Type Severity Reaction Status Date / Time cat dander AdvReac Unknown Irritable Verified 12/10/18 15:37 dog dander AdvReac Unknown Irritable Verified 12/10/18 15:37 Medications Home Medications Medication Instructions Recorded Confirmed Last Taken Hemp Drops 1 dose BID 12/10/18 12/10/18 Unknown Vitamin B2 100 mg PO DAILY 12/10/18 12/10/18 Unknown estradiol 1 mg PO DAILY 12/10/18 12/10/18 Unknown fremanezumab-vfrm [Ajovy] 1 dose SUBCUT MONTHLY PRN 12/10/18 12/10/18 11/20/18 lysine 500 mg PO DAILY 12/10/18 12/10/18 Unknown magnesium 400 mg PO DAILY 12/10/18 12/10/18 Unknown meloxicam 15 mg PO DAILY 12/10/18 12/10/18 Unknown sumatriptan succinate 1 tab PO UD PRN 12/10/18 12/10/18 11/24/18 Past Medical History Medical History Fibromyalgia HTN (hypertension) Herniated disc LUMBAR IBS (irritable bowel syndrome) Lyme disease NO CURRENT ISSUES Migraine Neuropathy LLE Past Surgical History Surgical History History of colonoscopy History of hysterectomy LAPRASCOPIC Social History Smoking Status: Never smoker Do You Dip or Chew Tobacco: No Hx Alcohol Use: Yes (ONCE EVERY FEW MONTHS) alcohol intake frequency: other Hx Substance Use: No substance use type: does not use Testing Laboratory Results 11/08/18 SODIUM 135 POTASSIUM 3.7 CHLORIDE 98 CO2 31 BUN 14 CREATININE 0.65 GLUCOSE 100
[~2018-12-14 09:29] MED LIST changes: -ASPI-390 PO; -B-CO1TAB21 PO; -CHOL400T PO; -IBUP-1050 PO; +LR 15ML/HR IV SCH; -TURM1CAP2 PO; -[UNRECOGNIZED DRUG - OTHER] PO; +cefUROXime 1,500 MG in DEXTROSE 5% 100 ML IV SCH
[2018-12-14 10:27] LABS: Basophils # (auto) 0.02 K/uL (0-0.2); Basophils % (auto) 0.4 %; Eosinophils # (auto) 0.15 K/uL (0-0.5); Eosinophils % (auto) 2.9 %; Hematocrit (blood only) 38.2 % (37-47); Hemoglobin 12.8 g/dL (12.0-16.0); Lymphocytes # (auto) 1.79 K/uL (1.2-3.4); Lymphocytes % (auto) 35.1 %; Mean Corpuscular Volume 83.6 fL (80-100); Mean Platelet Volume 8.9 fL (7.4-10.4); Monocytes # (auto) 0.48 K/uL (0.11-0.59); Monocytes % (auto) 9.4 %; Neutrophils # (auto) 2.66 K/uL (1.4-6.5); Neutrophils % (auto) 52.2 %; Platelet Count 331 K/uL (130-400); Red Blood Count 4.57 M/uL (4.2-5.4)
[2018-12-14] MEDS ORDERED: HYDROmorphone INJ 1 MG/ML SYRINGE IV PRN ×2 (10:29→10:53)
[2018-12-14] MEDS ORDERED: LABETALOL HCL IV 5 MG/ML 20ML IV PRN (10:29)
[2018-12-14] MEDS ORDERED: fentaNYL citrate 100 MCG/2 ML VIAL IV PRN (10:29)
[2018-12-14] MEDS ORDERED: ePHEDrine sulfate 50 MG/ML AMP IV PRN ×2 (10:29→10:53)
[2018-12-14] MEDS ORDERED: ONDANSETRON INJ 2 MG/ML 2 ML VIAL IV PRN ×3 (10:29→14:19)
[2018-12-14] MEDS ORDERED: MEPERIDINE HCL 25 MG/ML CARP IV PRN (10:29)
[2018-12-14] MEDS ORDERED: ATROPINE SULFATE 0.1 MG/ML 10ML SYR IV PRN ×2 (10:29→10:53)
[2018-12-14] MEDS ORDERED: PHENYLEPHRINE 100MCG/ML 5ML SYR IV PRN ×2 (10:29→10:53)
[2018-12-14 10:36] LABS: Mean Corpuscular Hgb Conc 33.5 g/dL (32-36)
--- NOTE | 2018-12-14 10:51 | History & Physical Bridge Note ---
Date of Service December 14, 2018 History & Physical Bridge Note I have examined the patient, reviewed the History & Physical and in the interval since the performance of the History & Physical I have noted the following changes of clinical significance: no changes noted
[2018-12-14 10:52] LABS: Bilirubin Direct 0.1 mg/dl (0-0.2); Bilirubin,Total 0.5 mg/dl (0.2-1); Total Protein 7.8 gm/dl (6.4-8.2)
[2018-12-14] MEDS ORDERED: PROMETHAZINE HCL 12.5 MG in SODIUM CHLORIDE 0.9% 50 ML IV PRN ×2 (10:53→14:19)
[2018-12-14] MEDS ORDERED: BUPIVACAINE 0.5 % 5 MG/1 ML MPF 30ML VIAL ONE (10:55)
[2018-12-14] MEDS ORDERED: CONRAY 60% 50 ML VIAL ONE (10:55)
[2018-12-14] MEDS ORDERED: MIDAZOLAM HCL 1 MG/ML 2ML VIAL ONE (11:01)
[2018-12-14] MEDS ORDERED: ONDANSETRON INJ 2 MG/ML 2 ML VIAL ONE (11:01)
[2018-12-14] MEDS ORDERED: PROPOFOL IV EMULSION 10 MG/ML 20 ML VIAL IV ONE (11:01)
[2018-12-14] MEDS ORDERED: DEXAMETHASONE SOD INJ 4 MG/ML VIAL ONE (11:01)
[2018-12-14] MEDS ORDERED: LIDOCAINE HCL 2% 2 ML VIAL/AMP(20MG/ML) INFIL ONE (11:01)
[2018-12-14] MEDS ORDERED: fentaNYL citrate 100 MCG/2 ML VIAL ONE ×2 (11:02→11:25)
[2018-12-14] MEDS ORDERED: PHENYLEPHRINE 100MCG/ML 5ML SYR ONE (11:56)
[2018-12-14] MEDS ORDERED: GLYCOPYRROLATE 0.2 MG/ML VIAL ONE ×2 (11:56→12:01)
[2018-12-14] MEDS ORDERED: NEOSTIGMINE METHYLSULFATE 5 MG/5 ML SYR ONE (11:56)
[2018-12-14] MEDS ORDERED: ROCURONIUM BROMIDE 10 MG/ML 5 ML VIAL ONE (11:56)
[2018-12-14] MEDS ORDERED: KETOROLAC 30 MG/ML VIAL ONE (12:05)
[2018-12-14] MEDS ORDERED: ACETAMINOPHEN 1,000 MG/100 ML VIAL IV ONE (12:06)
--- NOTE | 2018-12-14 12:06 | Operative Report ---
Post Operative Report Pre & Post Diagnosis Operation Date: 12/14/18 11:00 <No data on this case meets the specified criteria> chronic cholecystitis Procedure Operation Date: 12/14/18 11:00 <No data on this case meets the specified criteria>lap laparoscopic cholecystitis w/ lysis of adhesions Surgeon Robe Mc MD, FACS Medication Technician Yung Kim Estimated Blood Loss 10 Findings Consistent with Post-Op Diagnosis Specimens gallbladder Description of Procedure see dictation I attest to the content of the Intraoperative Record and any orders documented therein. Any exceptions are noted below.
[2018-12-14] MEDS: fentaNYL citrate 100 MCG/2 ML VIAL IV PRN ×4 (12:32→13:15)
--- NOTE | 2018-12-14 13:55 | Anesthesiology Progress Note ---
Date of Service December 14, 2018 Anesthesia Post Procedure Vital Signs Vital Signs: Temp Pulse Pulse Resp BP BP Pulse Ox 12/14/18 13:45 89 13 137/93 100 12/14/18 13:35 36.5 C 74 14 150/89 H 100 12/14/18 13:25 76 14 147/88 H 100 12/14/18 13:15 63 16 158/94 H 100 12/14/18 13:05 69 16 165/90 H 100 12/14/18 12:55 64 16 160/97 H 100 12/14/18 12:45 76 16 162/95 H 100 12/14/18 12:35 92 H 16 160/103 H 100 12/14/18 12:29 36.4 C L 109 H 16 167/96 H 100 12/14/18 10:23 36.6 C 73 16 124/85 99 Pain Intensity Abdomen: Pain Intensity: 4 Notes Mental Status: alert / awake / arousable Patient Amnestic to Procedure: Yes Nausea / Vomiting: adequately controlled Pain: adequately controlled Airway Patency, RR, SpO2: stable & adequate BP & HR: stable & adequate Hydration State: stable & adequate Anesthetic Complications: no major complications apparent
[2018-12-14] MEDS ORDERED: ACETAMINOPHEN 325 MG TAB PO PRN (14:19)
[2018-12-14] MEDS ORDERED: PROMETHAZINE HCL 25 MG in SODIUM CHLORIDE 0.9% 50 ML IV PRN (14:19)
[2018-12-14] MEDS ORDERED: HYDROCODONE/ACETAMOPHEN 5/325MG TAB PO PRN (14:19)
--- NOTE | 2018-12-14 14:19 | Operative Report ---
DATE OF OPERATION: 12/14/2018 NAME OF OPERATION: Laparoscopic cholecystectomy with lysis of adhesions. PREOPERATIVE DIAGNOSIS: Biliary colic. POSTOPERATIVE DIAGNOSIS: Biliary colic with chronic cholecystitis. STAFF SURGEON: Robe Mc MD ANESTHESIA: General. [place]: Omid Kim PA-C DESCRIPTION OF PROCEDURE: The patient was brought in the operating room and placed on the operating table in supine position. Her abdomen was prepped and draped in usual fashion. Pneumatic stockings, orogastric tube were placed. Incision was made above the umbilicus, anesthetizing all incisions using 0.5% plain Marcaine. Dissection was carried down to the fascia. A Veress needle placed. Pneumoperitoneum produced. An 11 mm port was placed at the umbilicus and then under visualization three 5 mm ports placed, 1 cephalad and 2 laterally. Gallbladder was grasped and retracted. There were adhesions of the omentum to the gallbladder. These were taken down. Gallbladder was aspirated of bile which was sludge-like. Dissection was carried out at the abelardo hepatis, identifying the cystic duct and 2 small branches of the cystic artery. These were clipped and transected and the gallbladder dissected away from the liver bed. There was evidence of chronic cholecystitis. Gallbladder was placed in an Endobag. After appropriate hemostasis and irrigation, the Endobag was removed through the umbilical site. The umbilical fascia closed using interrupted 0 Vicryl suture. Skin reapproximated using subcuticular 4-0 Monocryl and then Dermabond. My refinery operator assistant helped with prepping, draping, removal of the gallbladder and closure of the wounds. I attest to the content of the Intraoperative Record and any orders documented therein. Any exception s are noted below.
[2018-12-14] MEDS: MoRPHine SULFATE 2 MG/ML CARP IV PRN ×2 (15:29→16:01)
[2018-12-14] MEDS: SODIUM CHLORIDE 0.9% 1000ML 1,000 ML IV SCH (17:23)
[2018-12-14] MEDS: HYDROCODONE/ACETAMOPHEN 5/325MG TAB PO PRN ×2 (17:32→21:45)
[2018-12-14] MEDS: MoRPHine SULFATE 4 MG/ML 1 ML CARP\\VIAL IV PRN ×2 (19:09→23:40)
[2018-12-15] MEDS: HYDROCODONE/ACETAMOPHEN 5/325MG TAB PO PRN (07:48)
[2018-12-15] MEDS: MAGNESIUM OXIDE 400 MG TAB PO SCH (09:17)
[2018-12-15] MEDS: MELOXICAM 7.5 MG TAB PO SCH (09:17)
[2018-12-15] MEDS: ESTRADIOL 1 MG TAB PO SCH (09:17)
[2018-12-15] MEDS ORDERED: COUGH DROP (SUGAR FREE) LOZ 24 LOZ/1 BOX BUCCAL PRN (10:42)
--- NOTE | 2018-12-15 11:03 | Anesthesiology Progress Note ---
Date of Service December 15, 2018 Anesthesia Post Procedure Vital Signs Vital Signs: Temp Pulse Pulse Pulse Resp BP Pulse Ox 12/15/18 07:20 36.9 C 63 16 120/64 94 12/15/18 03:26 36.8 C 86 16 111/65 93 12/14/18 22:53 36.8 C 87 16 119/74 94 12/14/18 21:51 104 H 129/83 12/14/18 19:13 98 H 18 144/92 H 95 12/14/18 17:27 37.1 C 100 H 18 160/92 H 94 12/14/18 15:39 36.3 C L 76 16 134/88 94 12/14/18 15:00 36.3 C L 76 16 147/90 H 93 12/14/18 14:30 36.7 C 68 18 152/86 H 96 12/14/18 14:00 36.6 C 79 18 149/94 H 99 12/14/18 13:45 89 13 137/93 100 12/14/18 13:35 36.5 C 74 14 150/89 H 100 12/14/18 13:25 76 14 147/88 H 100 12/14/18 13:15 63 16 158/94 H 100 12/14/18 13:05 69 16 165/90 H 100 12/14/18 12:55 64 16 160/97 H 100 12/14/18 12:45 76 16 162/95 H 100 12/14/18 12:35 92 H 16 160/103 H 100 12/14/18 12:29 36.4 C L 109 H 16 167/96 H 100 Notes Mental Status: alert / awake / arousable Patient Amnestic to Procedure: Yes Nausea / Vomiting: adequately controlled Pain: adequately controlled Airway Patency, RR, SpO2: stable & adequate BP & HR: stable & adequate Hydration State: stable & adequate Anesthetic Complications: no major complications apparent and Pt Satisfied with anesthetic care
[2018-12-15] MEDS: MoRPHine SULFATE 4 MG/ML 1 ML CARP\\VIAL IV PRN (11:16)
--- NOTE | 2018-12-15 12:05 | Surgery Progress Note ---
Date of Service December 15, 2018 Assessment & Plan (1) Cholecystitis: pod 1 not quite ready for d/c yet secondary to pain OOB today. continue morphine when needed but encourage PO pain control. hopeful d/c tomorrow Subjective having some RUQ pain and shoulder pain. oral pain meds insufficient. mild nausea/flushing. Physical Exam Vital Signs (Past 24 Hours): Last Vital Signs Temp 36.9 C 12/15/18 11:52 Pulse 79 12/15/18 11:52 Resp 16 12/15/18 11:52 BP 132/80 12/15/18 11:52 Pulse Ox 94 12/15/18 11:52 Physical Exam: alert. mild distress abd: soft. expected tenderness
[2018-12-15] MEDS: SODIUM CHLORIDE 0.9% 1000ML 1,000 ML IV SCH (12:33)
[2018-12-15] MEDS: POLYETHYLENE (MIRALAX) 17 GM PACK PO PRN (15:23)
[2018-12-15] MEDS: DOCUSATE SODIUM 100 MG CAP PO SCH (20:33)
[2018-12-15] MEDS: MoRPHine SULFATE 2 MG/ML CARP IV PRN (23:47)
[2018-12-16] MEDS: POLYETHYLENE (MIRALAX) 17 GM PACK PO PRN (08:06)
[2018-12-16] MEDS: DOCUSATE SODIUM 100 MG CAP PO SCH (08:09)
[2018-12-16] MEDS: MELOXICAM 7.5 MG TAB PO SCH (08:09)
[2018-12-16] MEDS: MAGNESIUM OXIDE 400 MG TAB PO SCH (08:09)
[2018-12-16] MEDS: ESTRADIOL 1 MG TAB PO SCH (08:09)
[2018-12-16] MEDS: SODIUM CHLORIDE 0.9% 1000ML 1,000 ML IV SCH (08:11)
--- NOTE | 2018-12-16 13:58 | Surgery Progress Note ---
Date of Service December 16, 2018 Assessment & Plan (1) Cholecystitis: pod 2 ok for d/c instructions given Subjective still some incisional pain but feeling better. isamar diet. Physical Exam Vital Signs (Past 24 Hours): Last Vital Signs Temp 37.0 C 12/16/18 07:05 Pulse 65 12/16/18 07:05 Resp 14 12/16/18 07:05 BP 114/73 12/16/18 07:05 Pulse Ox 94 12/16/18 07:05 Physical Exam: alert. nad abd: soft. expected tenderness
--- NOTE | 2018-12-17 11:32 | Discharge Summary ---
Date of Service December 19, 2018 Admission HPI Per Admitting Provider Patient was seen in the office with a history of biliary colic found with gallstones and brought into the hospital for elective cholecystectomy. Discharge Data Procedures Performed Operation Date: 12/14/18 11:00 Actual Procedures p Laparoscopic Cholecystectomy(Not Applicable) - Robe Mc MD, FACS
--- NOTE | 2018-12-17 13:29 | Discharge Summary ---
Date of Service December 17, 2018 Admission HPI Per Admitting Provider Patient was seen in the office with a history of biliary colic found with gallstones and brought into the hospital for elective cholecystectomy. Principal Diagnosis Chronic cholecystitis Discharge Data Allergies Allergy/AdvReac Type Severity Reaction Status Date / Time cat dander AdvReac Unknown Irritable Verified 12/14/18 10:04 dog dander AdvReac Unknown Irritable Verified 12/14/18 10:04 Procedures Performed Operation Date: 12/14/18 11:00 Actual Procedures p Laparoscopic Cholecystectomy(Not Applicable) - Robe Mc MD, FACS Hospital Course (1) Cholecystitis: Patient was taken to the operating room on 12/14/2018 where she underwent laparoscopic cholecystectomy. She had evidence of adhesions which was consi stent with chronic cholecystitis and stones in the gallbladder. She tolerated procedure very well and was kept overnight and progressed well and was felt stable for discharge home on 12/15/2018 to be followed in the surgical clinic within 1-2 weeks. Total Time Total Time Spent Total Time Spent (In Minutes): 15 minutes Discharge Plan Discharge Items Patient Disposition: Home - Self-Care Reason For Visit: EPIGASTRIC ABDOMINAL PAIN Discharge Diagnosis: chronic cholecystitis Discharge Goals: Decrease discomfort, Improve disease control and Improve function Activity: As commented below Activity Comment: light activity for 3 weeks Lifting: No more than 25 pounds Bathing Comment: may shower Sexual Activity: When tolerated Exercise Comment: wait 3 weeks Driving/Machine Use: Resume 3 days after discharge Non-emergency contact: Surgeon Call non-emergency contact if: your pain is not controlled, your temperature is above 101 and your wound has increased drainage Follow-up/Referrals: Gertrude Mckinnon CRNP [Primary Care Provider] - Diet: Regular Addtl Provider Instructions: SPECIAL CARE INSTRUCTIONS: * Cover incisions and change daily for comfort/drainage. * May use ibuprofen for pain as tolerated. * Expect some swelling and bruising. Call your doctor if: * Temperature above 101 degrees * Pain not relieved by pain medicine ordered * There is increased drainage or redness from any incision * You have any unanswered questions or concerns [phone]. FOLLOW UP VISIT: If not already scheduled, please call the office for a follow-up visit. OFFICE PHONE NUMBER: Dr. Mc Office for 1-2 weeks- check up Prescriptions: New hydrocodone-acetaminophen [[place]] 5-325 mg tablet 1 - 2 tab PO Q6H Qty: 30 RF: 0 Continued meloxicam 15 mg Tablet 15 mg PO DAILY RF: 0 estradiol 1 mg Tablet 1 mg PO DAILY RF: 0 lysine 500 mg Tablet 500 mg PO DAILY RF: 0 Ajovy 225 mg/1.5 mL Syringe 1 dose SUBCUT MONTHLY PRN (Reason: MIGRAINES) RF: 0 sumatriptan succinate 100 mg Tablet 1 tab PO UD PRN (Reason: MIGRAINES) RF: 0 magnesium 200 mg Tablet 400 mg PO DAILY RF: 0 Hemp Drops 1 dose BID RF: 0 Vitamin B2 100 mg PO DAILY RF: 0 Stand-Alone Forms: [facility] [place] [employer]/Other Patient Handouts: Cholecystectomy Laparoscopic Dc Discharge Orders: Discharge Order (Routine); Ordered 12/16/18 Ordered By: Alvaro Benitez Admission Data Admit Date/Time: 12/14/18 12:06 Attending Provider: Robe Mc Admit Provider: Robe Mc Primary Care Provider: Gertrude Mckinnon Service: Surgical Services Other Interventions: Discharge Summary Assessment (RN) Last Done: 12/16/18 13:55 DC Date/Time DO NOT enter until pt leaves facility: 12/16/18 14:20
== END 2018-12-16 14:20 | disposition home or self-care (01) ==
LOC: 3N 09:29 → ASU 09:29

== ENCOUNTER 2024-01-15 08:46 | Observation (INO) ==
--- NOTE | 2023-12-18 15:54 | PAT Medication Instructions ---
Medication Instructions Date of Service December 18, 2023 Home Medications Medication Instructions Recorded onabotulinumtoxinA 200 unit See Rx Instructions IM .COMPLEX #1 03/20/23 solution for injection (Botox) ea potassium chloride 20 mEq 20 meq PO DAILY #7 tabs 07/31/23 tablet,extended release magnesium glycinate 400 mg (4 x 100 mg magnesium) PO 11/16/23 DAILY #30 caps metronidazole 0.75 % topical gel See Rx Instructions topical 11/21/23 .COMPLEX #45 grams omeprazole 40 mg capsule,delayed 40 mg PO QAM #90 caps 11/21/23 release sucralfate 100 mg/mL oral 10 ml PO QID #300 mL 11/21/23 suspension (Carafate) meclizine 25 mg tablet 25 mg PO BID PRN dizziness #30 tabs 11/22/23 baclofen 10 mg tablet 10 mg PO TID PRN muscle spasm #60 11/29/23 tabs ubrogepant 100 mg tablet (Ubrelvy) 100 mg PO .COMPLEX 30 days #10 tabs 11/29/23 amoxicillin 500 mg tablet 2,000 mg (4 x 500 mg) PO ONCE #4 12/18/23 tabs tlmumhu-qusrheyvqbmwu-pgwamitp 250 mg-250 mg-65 mg tablet (Headache Relief (SFT-ftzrmzdvqjue-nzaofxyk)) 1 tab PO DIRECTED PRN Migraine Headache golo release 1 cap PO TID onabotulinumtoxinA 200 unit solution for injection (Botox) See Rx Instructions amoxicillin 500 mg tablet 2,000 mg PO DIRECTED PRN PRIOR TO DENTAL PROCEDURES diazepam 5 mg tablet (Valium) 5 mg PO DIRECTED PRN PRIOR TO MRI'S estradiol 2 mg tablet 2 mg PO QAM potassium chloride 20 mEq tablet,extended release 20 meq PO SAYDA magnesium glycinate 400 mg (4 x 100 mg magnesium) PO DAILY metronidazole 0.75 % topical gel See Rx Instructions topical omeprazole 40 mg capsule,delayed release 40 mg PO QAM meclizine 25 mg tablet 25 mg PO BID PRN dizziness baclofen 10 mg tablet 10 mg PO TID PRN muscle spasm ubrogepant 100 mg tablet (Ubrelvy) 100 mg PO .COMPLEX 3 amoxicillin 500 mg tablet 2,000 mg (4 x 500 mg) PO ONCE ascorbic acid 7.5 mg-vit E 7.5 unit-biotin 1,250 mcg chewable tablet (Hair,Skin,Nails with Biotin) 1 tab PO DAILY cholecalciferol (vitamin D3) 50 mcg (2,000 unit) tablet (Vitamin D3) 50 mcg PO DAILY colestipol 1 gram tablet 1 g PO HS propranolol 60 mg capsule,24 hr,extended release 60 mg PO HS Continue as directed onabotulinumtoxinA 200 unit solution for injection (Botox) See Rx Instructions amoxicillin 500 mg tablet 2,000 mg PO DIRECTED PRN PRIOR TO DENTAL PROCEDURES (if needed) diazepam 5 mg tablet (Valium) 5 mg PO DIRECTED PRN PRIOR TO MRI'S (if needed) amoxicillin 500 mg tablet 2,000 mg (4 x 500 mg) PO ONCE (if needed) ASK your surgeon for instructions htlwiub-ojhyzfrbfohsy-enlcolcs 250 mg-250 mg-65 mg tablet (Headache Relief (OFF-uxevpqxrjxbh-udurfgmv)) 1 tab PO DIRECTED PRN Migraine Headache ASK your prescriber and surgeon estradiol 2 mg tablet 2 mg PO QAM STOP taking 2 weeks before surgery golo release 1 cap PO TID STOP taking 48 hours before surgery colestipol 1 gram tablet 1 g PO HS STOP taking 24 hours before surgery metronidazole 0.75 % topical gel See Rx Instructions topical DO NOT take the morning of surgery potassium chloride 20 mEq tablet,extended release 20 meq PO DAILY magnesium glycinate 400 mg (4 x 100 mg magnesium) PO DAILY ascorbic acid 7.5 mg-vit E 7.5 unit-biotin 1,250 mcg chewable tablet (Hair,Skin,Nails with Biotin) 1 tab PO DAILY cholecalciferol (vitamin D3) 50 mcg (2,000 unit) tablet (Vitamin D3) 50 mcg PO DAILY Take morning of surgery With a small sip of water, OTHERWISE NOTHING TO EAT OR DRINK AFTER MIDNIGHT: omeprazole 40 mg capsule,delayed release 40 mg PO QAM meclizine 25 mg tablet 25 mg PO BID PRN dizziness (if needed) baclofen 10 mg tablet 10 mg PO TID PRN muscle spasm (if needed) ubrogepant 100 mg tablet (Ubrelvy) 100 mg PO .COMPLEX (if needed) Take evening before surgery meclizine 25 mg tablet 25 mg PO BID PRN dizziness (if needed) baclofen 10 mg tablet 10 mg PO TID PRN muscle spasm (if needed) ubrogepant 100 mg tablet (Ubrelvy) 100 mg PO .COMPLEX (if needed) propranolol 60 mg capsule,24 hr,extended release 60 mg PO HS Other Notes If you have any questions please call us at [phone] or [phone] or [phone] or [phone]
--- NOTE | 2023-12-20 11:32 | Anesthesiology Consultation ---
Date of Service December 20, 2023 Assessment & Plan (1) Encounter for pre-operative examination: - unrepaired Chiari malformation: Case discussed with Dr. Hensley who advised determination on neuraxial anesthesia will be to anesthesiologist discretion am DOS. Bolus not ordered. - Outpatient joint assessment: Patient is currently scheduled for inpatient pathway. If re-evaluated and patient/surgeon requests outpatient pathway, patient is acceptable candidate for outpatient joint program from anesthesia standpoint pending surgeon's office assessment of pt motivation/support/completion of same day joint program preop requirements. Chart Review Chart Review: Acceptable Risk for Surgery and Patient NOT seen in Pre Admission Testing Teaching & Discussion Pre-Anesthesia Teaching/Discussion Notes: Instructed NPO after midnight before surgery, except medications with 15 cc of water. Medication instructions provided according to the PAT guidelines. History Surgery Operation Date: 01/15/24 12:20 Proposed Procedures p Left Total Knee Arthroplasty - Javy Harris, Height/Weight Height: 5 ft 3 in Weight: 64.9 kg Allergies Allergy/AdvReac Type Severity Reaction Status Date / Time topiramate Allergy Unknown Unknown Verified 12/18/23 07:37 cat dander AdvReac Mild Irritable Verified 12/18/23 07:37 dog dander AdvReac Mild Irritable Verified 12/18/23 07:37 NSAIDS (Non-Steroidal AdvReac Unknown GI upset, Verified 12/18/23 07:37 Anti-Inflamma advised to avoid by GI doctor Medications Home Medications Medication Instructions Recorded Confirmed Last Taken uzjvqab-thwabbvakxuis-pkpqoksy 250 1 tab PO DIRECTED PRN Migraine 06/07/22 12/18/23 Unknown mg-250 mg-65 mg tablet (Headache Headache Relief (TBF-jcfhnnjbzyyy-txfaoesd)) golo release 1 cap PO TID 03/01/23 12/18/23 07/31/23 onabotulinumtoxinA 200 unit See Rx Instructions IM .COMPLEX #1 03/20/23 12/18/23 Unknown solution for injection (Botox) ea amoxicillin 500 mg tablet 2,000 mg PO DIRECTED PRN PRIOR 07/31/23 12/18/23 Unknown TO DENTAL PROCEDURES diazepam 5 mg tablet (Valium) 5 mg PO DIRECTED PRN PRIOR TO 07/31/23 12/18/23 Unknown MRI'S estradiol 2 mg tablet 2 mg PO QAM 07/31/23 12/18/23 07/31/23 magnesium glycinate 400 mg (4 x 100 mg magnesium) PO 11/16/23 12/18/23 Unknown DAILY #30 caps metronidazole 0.75 % topical gel See Rx Instructions topical 11/21/23 12/18/23 Unknown .COMPLEX #45 grams omeprazole 40 mg capsule,delayed 40 mg PO QAM #90 caps 11/21/23 12/18/23 Unknown release sucralfate 100 mg/mL oral 10 ml PO QID #300 mL 11/21/23 12/18/23 Unknown suspension (Carafate) meclizine 25 mg tablet 25 mg PO BID PRN dizziness #30 tabs 11/22/23 12/18/23 Unknown baclofen 10 mg tablet 10 mg PO TID PRN muscle spasm #60 11/29/23 12/18/23 Unknown tabs ubrogepant 100 mg tablet (Ubrelvy) 100 mg PO .COMPLEX 30 days #10 tabs 11/29/23 12/18/23 Unknown ascorbic acid 7.5 mg-vit E 7.5 1 tab PO DAILY 12/18/23 12/18/23 Unknown unit-biotin 1,250 mcg chewable tablet (Hair,Skin,Nails with Biotin) cholecalciferol (vitamin D3) 50 50 mcg PO DAILY 12/18/23 12/18/23 Unknown mcg (2,000 unit) tablet (Vitamin D3) colestipol 1 gram tablet 1 g PO HS 12/18/23 12/18/23 Unknown propranolol 60 mg capsule,24 60 mg PO HS 12/18/23 12/18/23 Unknown hr,extended release Past Medical History Medical History (Updated 12/21/23 @ 08:23 by Kay Choe PA-C) Abdominal pain chronic, follows with [facility] Chiari malformation No surgical repair, follows with Dr. Bo with [facility] Elevated blood pressure reading in office without diagnosis of hypertension Fibromyalgia Gastritis Hx GERD (gastroesophageal reflux disease) controlled, stable per pt: she states chest discomfort resolved with increase in PPI, follows with PCP Herniated disc Lumbar > got injection History of COVID-19 Dx 12/2020 > symptoms at time of fever, achiness, loss of appetite, increased back pain > resolved Hypothyroidism no meds IBS (irritable bowel syndrome) Lyme disease Hx-several yrs ago, no current issues Migraine Neuropathy LLE Patient denies h/o stroke, seizures, heart attack, heart failure, DM, blood clots/DVTs or blood transfusions. Exercise / Class Metabolic Activity III < 4 Walking/Shop/Light housework (denies chest discomfort or shortness of breath with 1 FOS) Past Family History Family History Mother Family history of diabetes mellitus Other No family history of adverse response to anesthesia Past Surgical History Surgical History History of cholecystectomy Lap cholecystectomy (12/14/18): Grade 2 view, MAC#3, ETT 7.0 at [facility] History of colonoscopy History of esophagogastroduodenoscopy (EGD) History of hysterectomy Laparoscopic History of tooth extraction History of total knee replacement Right Unicompartmental Knee Arthroplasty Past Anesthesia History No Hx of Anesthesia Complications and No Family Hx of Anesthesia Complications History of PONV No Hx of PONV and Hx of Motion Sickness Social History Smoking Status: Never smoker Do You Dip or Chew Tobacco: No Hx Alcohol Use: Yes Alcohol type: hard liquor alcohol intake frequency: a few times a month Hx Substance Use: No substance use type: does not use Review of Systems Occasional snoring, denies witnessed apneas. Patient denies chest pain, shortness of breath, dyspnea on exertion, fever, chills, cough, wheezing, or palpitations. Physical Exam Vital Signs Vitals BP 121/83 P 67 TEMP 97.7 SP02 95% on RA RESP 18 Physical Patient resting comfortably in chair in no acute distress, alert and oriented, responding appropriately throughout visit Full cervical extension range of motion without pain TMD 3.5 finger breadths Mallampati Score 2 Dentition: intact, denies chipped or loose teeth, caps/crowns, implants or bridges Lungs: normal respiratory effort. Good air movement, clear throughout to auscultation, no adventitious breath sounds Cardiac: regular rate and rhythm, no murmurs noted Carotid arteries: negative bruit bilat Lab Results Anesthesia Preop Results Results Anesthesia Widget: WBC 6.89 K/ul (4.8-10.8) 12/20/23 Hgb 12.7 g/dl (12.0-16.0) 12/20/23 Hct 38.8 % (37.0-47.0) 12/20/23 Plt 371 K/uL (130-400) 12/20/23 Na 136 mmol/L (136-145) 12/20/23 K 4.1 mmol/L (3.5-5.1) 12/20/23 Cl 100 mmol/L (98-107) 12/20/23 CO2 32 mmol/L (21-32) 12/20/23 BUN 15 mg/dl (6-23) 12/20/23 Creat 0.57 mg/dl (0.6-1.2) L 12/20/23 Glucose Level 93 mg/dl (70-99(Fasting)) 12/20/23 PT 10.3 Seconds (9.0-12.0) 12/20/23 PTT 30 Seconds (21-31) 12/20/23 INR 0.9 (0.9-1.1) 12/20/23 Blood Type O Positive 12/20/23 Antibody Screen NEGATIVE 12/20/23 Testing Electrocardiogram Date: 12/20/23 NSR, rate 66 bpm Chest X-Ray Date: 12/20/23 No acute process. Stress Test Date: 11/29/23 METS 7 MPHR 93% Normal stress echo Normal LV systolic function without wall motion abnormality No significant valvular pathology
[~2024-01-15 08:46] MED LIST changes: +BUPIVACAINE 0.5 % 5 MG/1 ML PF 10ML VIAL ONE; -LR 15ML/HR IV SCH; +ROPIVACAINE 0.5% 5 MG/ML 30 ML VIAL ONE; -cefUROXime 1,500 MG in DEXTROSE 5% 100 ML IV SCH
[2024-01-15] MEDS ORDERED: MIDAZOLAM HCL 1 MG/ML 2ML VIAL ONE (09:28)
[2024-01-15] MEDS ORDERED: fentaNYL citrate PF 100 MCG/2 ML VIAL ONE (09:28)
[2024-01-15] MEDS ORDERED: ONDANSETRON INJ 2 MG/ML 2 ML VIAL ONE (09:28)
[2024-01-15] MEDS ORDERED: PROPOFOL IV EMULSION 10 MG/ML 20 ML VIAL IV ONE (09:28)
[2024-01-15] MEDS: ACETAMINOPHEN 500 MG TAB PO SCH ×2 (09:34→13:26)
[2024-01-15] MEDS: GABAPENTIN 900 MG DOSE PO SCH (09:34)
[2024-01-15] MEDS: FAMOTIDINE 20 MG TAB PO SCH (09:34)
[2024-01-15] MEDS: dexAMETHasone**PF** 10 MG/ML VIAL IV SCH (09:35)
[2024-01-15] MEDS: LR 15ML/HR IV SCH (09:35)
--- NOTE | 2024-01-15 10:08 | History & Physical Bridge Note ---
Date of Service January 15, 2024 History & Physical Bridge Note I have examined the patient, reviewed the History & Physical and in the interval since the performance of the History & Physical I have noted the following changes of clinical significance: no changes noted
[2024-01-15] MEDS: TRANEXAMIC ACID 1,000 MG **IV Pre-op IV SCH (10:26)
[2024-01-15] MEDS: LR 60ML/HR IV SCH (10:29)
[2024-01-15] MEDS: ceFAZolin 2000MG 2,000 MG/15 ML SYR IV SCH ×2 (10:39→17:13)
[2024-01-15] MEDS: TRANEXAMIC ACID 1,000 MG **IV Intra-op IV SCH (11:35)
[2024-01-15] MEDS: ROPIV 0.5% 246mg, Ketorolac 30mg, EPINEPHrine 0.5mg in NSS INFIL SCH (11:36)
[2024-01-15] MEDS: ORTHO JOINT ANESTHETIC ONE (11:36)
--- NOTE | 2024-01-15 11:51 | Operative Report ---
PG Post Operative Report Pre & Post Diagnosis Operation Date: 01/15/24 10:20 Pre-Op Diagnosis: Left knee degenerative joint disease. Post-Op Diagnosis: Left knee degenerative joint disease. I identified the patient and participated in the time-out.: Yes Procedure Operation Date: 01/15/24 10:20 Actual Procedures p Left Total Knee Arthroplasty, Cemented(Left) - Javy Harris DO Surgeon Javy Harris DO Drafter Refrigeration Javy Zheng PA-C Estimated Blood Loss 30 Findings Consistent with Post-Op Diagnosis Specimens Left femoral tibial bone Description of Procedure Implants used: I used a Erik Persona total knee arthroplasty system with a size 6 narrow femur, D tibia, 31 oval patella, and a size 10 medial congruent polyethylene bearing. All components were cemented in place with Biomet cement. Angela arrived [facility] for the above procedure. She was seen in the preoperative holding area and the operative extremity was identified and signed. She was given a preoperative antibiotic, TXA, a spinal anesthetic and an adductor nerve block. She was taken back to the operating room and laid on the table in supine position. She was given basic sedation. The operative knee was then prepped and draped in sterile fashion. A timeout was done, and the patient and the operative extremity was properly identified. A midline incision was made directly over the patella. Dissection was taken down to the extensor mechanism. A midvastus arthrotomy was used. The medial retinaculum was released and the fat pad was mostly excised. The knee was flexed and the ACL, PCL, and meniscus were removed. A drill was sent down the center of the femoral canal followed by an intramedullary bridget. Off that bridget a distal femoral cutting block was placed. 9 mm was resected off the distal femur at 5 of valgus. A posterior referencing AP sizing guide was then placed on the distal femur. The femur measured to be a size 6. 2 drill holes were placed in 3 of external rotation. A 4-in-1 cutting block was then impacted into place. Anterior, posterior, and chamfer cuts were then made. The proximal tibia was then exposed. An external tibial alignment guide was placed. A tibial cut guide was then anchored in place and the proximal tibia was then resected. The posterior aspect of the knee was then opened up and any additional meniscus fragments and osteophytes were removed. The tibia measured to be a size D. The tibial plate was then placed in the appropriate rotation and the tibia was drilled and punched. Trial components were then placed. I used a size 10 medial congruent polyethylene insert. The knee was brought through a full range of motion and felt to be stable. The peg holes for the femoral component were then drilled. The patella was then everted and 9 mm was resected off the posterior aspect of the patella. The patella measured to be a size 31 oval. 3 peg holes were then drilled. A trial patella was placed. The knee was once again brought through a full range of motion and felt to be stable. Trial components were then removed. The surrounding soft tissues were injected with 100 cc of an orthopedic pain control cocktail. All components were then cemented into place with Biomet cement. The final polyethylene insert was then snapped into place. Once cement was dry the tourniquet was deflated. Hemostasis was obtained. A dilute betadyne lavage was then done for 3 minutes. The joint was then irrigated with normal saline solution. The midvastus ar throtomy was then closed with #1 Vicryl suture. The skin was closed with 2-0 Vicryl, 3-0V lock suture, and dianelys. A soft compressive dressing was placed. She was then transferred to a hospital bed and taken to the postanesthesia care unit in stable condition. She tolerated the procedure well. Javy Zheng PA-C, was present for the entire procedure. He was critical for patient positioning, prepping, draping, retraction exposure, wound closure and application of sterile dressing. I attest to the content of the Intraoperative Record and any orders documented therein. Any exceptions are noted below.
--- NOTE | 2024-01-15 12:36 | Anesthesiology Progress Note ---
Date of Service January 15, 2024 Anesthesia Post Procedure Vital Signs Vital Signs: Temp Pulse Pulse Resp BP Pulse Ox O2 Del Method 01/15/24 12:30 36.4 C L 81 12 128/85 97 Room Air 01/15/24 12:20 79 15 121/76 100 Oxymask 01/15/24 12:10 73 16 124/79 100 Oxymask 01/15/24 12:00 36.0 C L 88 14 126/71 98 Oxymask 01/15/24 09:17 36.4 C L 71 18 99 Room Air O2 Flow Rate 01/15/24 12:30 01/15/24 12:20 4 01/15/24 12:10 4 01/15/24 12:00 6 01/15/24 09:17 Pain Intensity Left Knee: Pain Intensity: 5 Notes Mental Status: alert / awake / arousable Patient Amnestic to Procedure: Yes Nausea / Vomiting: adequately controlled Pain: adequately controlled Airway Patency, RR, SpO2: stable & adequate BP & HR: stable & adequate Hydration State: stable & adequate Neuraxial Anesthesia: was administered and sensory block is resolving Anesthetic Complications: no major complications apparent
[2024-01-15] MEDS ORDERED: ONDANSETRON INJ 2 MG/ML 2 ML VIAL IV PRN (12:52)
[2024-01-15] MEDS ORDERED: BACLOFEN 10 MG TAB PO PRN (12:52)
[2024-01-15] MEDS ORDERED: NALOXONE HCL 0.4 MG/1 ML VIAL/CARP IV PRN (12:52)
[2024-01-15] MEDS ORDERED: METOCLOPRAMIDE HCL INJ 5 MG/ML 2 ML VIAL IV PRN (12:52)
[2024-01-15] MEDS ORDERED: MECLIZINE HCL 25 MG TAB PO PRN (12:52)
[2024-01-15] MEDS: SODIUM CHLORIDE 0.9% 1,000 ML IV SCH (12:55)
[2024-01-15] MEDS: KETOROLAC 30 MG/ML VIAL IV SCH (13:26)
--- NOTE | 2024-01-15 15:45 | XRay Report ---
XR knee LT 1 or 2V routine CLINICAL HISTORY: Postoperative evaluation. COMPARISON: Left knee radiographs December 20, 2023. FINDINGS: Alignment of the total left knee arthroplasty is anatomic. There is no periprosthetic frac ture or unexpected radiopaque foreign body. There are skin dianelys. IMPRESSION: Expected findings following total left knee arthroplasty. ACT 112: Negative or not required by law. Electronically signed by: Carrillo Peguero M.D. 01/15/2024 3:44 PM
[2024-01-15] MEDS: oxyCODONE HCL IR 5 MG TAB (IMMEDIATE RELEASE) PO PRN (18:45)
[2024-01-15] MEDS: SENNA 8.6 MG TAB PO SCH (20:51)
[2024-01-15] MEDS: ASPIRIN 81 MG ECTAB PO SCH (20:51)
[2024-01-15] MEDS: metroNIDAZOLE 0.75% TOPICAL GEL 45 GM TUBE TOP SCH (20:51)
[2024-01-15] MEDS: PROPRANOLOL HCL 60 MG LA CAP PO SCH (20:52)
[2024-01-15] MEDS: PANTOprazole 40 MG TAB PO SCH (20:52)
[2024-01-15] MEDS: COLESTIPOL HCL 1 GM TAB PO SCH (20:52)
[2024-01-15] MEDS: DOCUSATE SODIUM 100 MG CAP PO SCH (20:53)
[2024-01-16] MEDS: MULTIVITAMIN TAB PO SCH (07:32)
[2024-01-16] MEDS: dexAMETHasone 4 MG TAB PO SCH (07:33)
[2024-01-16] MEDS: estradioL 1 MG TAB PO SCH (07:34)
--- NOTE | 2024-01-16 13:59 | Orthopedic Progress Note ---
Date of Service January 16, 2024 Assessment & Plan (1) Status post left knee replacement: Overall, she is doing quite well today with good pain control to the left knee. She will work with physical therapy later this morning to work on ambulation and range of motion exercises. She is on aspirin for DVT prophylaxis. She does state that she does not feel comfortable being discharged home today and would rather stay 1 more night to have time to work with physical therapy 1 more time before she gets discharged. Will keep her admitted tonight with the anticipation that she will be stable for discharge tomorrow morning. Will continue to follow. Subjective . Angela was seen and evaluated this morning resting comfortably in no apparent distress. She notes that her pain is well-controlled to the left knee. She has yet to be seen by physical therapy this morning. She has been out of bed with no significant issues. She denies any other concerns today. Review of Systems All systems reviewed & are unremarkable except as noted in HPI & below. Physical Exam . On physical examination of the left knee, dressings are clean, dry, intact. Her leg is out in full extension. She has active plantarflexion dorsiflexion of left ankle. +2 DP and PT pulses. Less than 2-second capillary refill. Normal sensation. Neurovascular intact. Results & Data Results & Data Laboratory Results . Diagnostic Findings . Postoperative x-rays of the left knee show prosthesis to be anatomical alignment with no signs of fracture complication or loosening. PG Care Time/CCT Total # of Minutes Spent Total Time Spent with Patient: Total time spent is greater than 50% in coordination of care (as documented) at patient's floor/unit and/or counseling patient: Coding Level of Care Code 57436 Post Operative Follow-Up Diagnoses Status post left knee replacement Z96.652
[2024-01-16] MEDS: MAGNESIUM HYDROXIDE SUSP 30 ML UDC PO PRN (16:46)
[2024-01-16] MEDS: HYDROmorphone INJ 0.5 MG/0.5 ML SYR IV PRN (17:31)
[2024-01-16] MEDS: bisacodyL 10 MG SUPP PR PRN (22:00)
--- NOTE | 2024-01-17 11:13 | Orthopedic Progress Note ---
Date of Service January 17, 2024 Assessment & Plan (1) Status post left knee replacement: Overall, she is doing quite well today with good pain control to the left knee. She will work with physical therapy later this morning to work on ambulation and range of motion exercises. She is on aspirin for DVT prophylaxis. She has been working well physical therapy with no significant issues. She can be discharged home later this morning pending formal physical therapy recommendations. She will follow-up with orthopedics in 2 weeks for postoperative management. Subjective . Angela was seen and evaluated today resting comfortably in no apparent distress. She notes that her pain is well-controlled to the left knee on her current analgesic regimen. She has been working with physical therapy with no significant issues. She has been up and out of bed with no significant issues. She denies any other concerns today. Review of Systems All systems reviewed & are unremarkable except as noted in HPI & below. Physical Exam . On physical examination of the left knee, dressings are clean, dry, intact. Her leg is out in full extension. She has active plantarflexion dorsiflexion of left ankle. +2 DP and PT pulses. Less than 2-second capillary refill. Normal sensation. Neurovascular intact. Results & Data Results & Data Laboratory Results . Diagnostic Findings . PG Care Time/CCT Total # of Minutes Spent Total Time Spent with Patient: Total time spent is greater than 50% in coordination of care (as documented) at patient's floor/unit and/or counseling patient: Coding Level of Care Code 27322 Post Operative Follow-Up Diagnoses Status post left knee replacement Z96.652
--- NOTE | 2024-01-17 11:16 | Discharge Summary ---
Date of Service January 17, 2024 Principal Diagnosis Same as "Discharge Diagnosis" noted below under Discharge Instructions. Discharge Exam . On physical examination of the left knee, dressings are clean, dry, intact. Her leg is out in full extension. She has active plantarflexion dorsiflexion of left ankle. +2 DP and PT pulses. Less than 2-second capillary refill. Normal sensation. Neurovascular intact. Discharge Data Procedures Performed Operation Date: 01/15/24 10:20 Actual Procedures p Left Total Knee Arthroplasty, Cemented(Left) - Javy Harris DO Ordered Studies 01/15/24 05:00 US - OR guided needle placemen Routine Hospital Course (1) Status post left knee replacement: On January 15, 2024 Angela arrived at [facility] and underwent a left total knee arthroplasty performed by Dr. Harris with no complications. She had a spinal anesthetic. Postoperatively, she was started on aspirin for DVT prophylaxis and transferred to the general orthopedic floor in stable condition. Her hospital course was uneventful. On postoperative day 1, her vital signs were stable and her pain was well-controlled. She participated well with physical therapy work on ambulation and range of motion exercises. She did not feel that she could safely be discharged at this point and requested to stay 1 more day. No other significant events occurred during the stay. On postoperative day #2, her vital signs are stable and her pain is well- controlled. She participated well with physical therapy working on ambulation and range of motion exercises. She was then discharged home in stable condition. She will follow-up with orthopedics in 2 weeks for postoperative management. PG Care Time/CCT Total # of Minutes Spent Total Time Spent with Patient: Total time spent is greater than 50% in coordination of care (as documented) at patient's floor/unit and/or counseling patient: Discharge Plan Discharge Items Patient Disposition: Home - Home Health Services Reason For Visit: Left Knee Degenerative Joint Disease Discharge Diagnosis: Same Activity: Per Instructions section Non-emergency contact: Surgeon Call non-emergency contact if: your temperature is above 101.5, your wound has increased redness, your wound has increased drainage and your wound pain has increased Follow-up/Referrals: Gertrude Salcedo CRNP [Primary Care Provider] - Diet: Regular Addtl Attending Provider Instructions: Activity and Therapy Recommendations: * If you are using [facility] then therapy will be provided at your home until they feel you have accomplished all of your goals. * If you are using [facility] then Physical Therapy will be provided until they feel you are ready to start Outpatient Physical Therapy. * If you are not using home therapy then Outpatient Physical Therapy should start about 3-5 days from your day of surgery. Therapy will last about 6-10 weeks * It is important not to put a pillow under your knee when you are relaxing or sleeping. It is just as important to make sure you are getting your knee perfectly straight as it is to regain your knee bend. * You were shown a series of exercises in the hospital. Do these exercises three times each day including the exercises you were shown in physical therapy. * Get up and walk several times each day. For the first four weeks, try not to stand or walk for more than one hour at a time. If you do stand or walk for more than one hour, you will not hurt anything, but your leg will likely swell. * As you feel comfortable, you may change from the walker or crutches to a cane and then to independent walking. Medications: * Narcotic You will likely be sent home from the hospital with a prescription for the narcotic pain medication that worked best throughout your stay. * Cefadroxil -take the antibiotic twice a day for 10 days to help prevent infection. * Aspirin Most patients will be required to take Aspirin 81mg twice a day for 6 weeks after surgery. This is obtained [id number] and a prescription is not necessary. * Other medications may be prescribed for specific circumstances. If you have any questions, please call the office at . * Resume previous home medications unless otherwise instructed TEDs/Elastic Stockings: The white elastic stockings help limit swelling and prevent blood clots from forming in your legs.~ The more you wear them, the more they work. Wear them for six weeks. Dressing Care: The dressing can be changed after physical therapy on postop day #1. Daily dry dressing changes for a few days, especially if the incision is still draining some. If the incision is not draining then you may leave the dianelys open to air. If there is a little bit of drainage or if the dianelys are getting stuck on your clothing then cover the incision with a dry dressing. The dianelys will be removed at your 2 week follow-up appointment. Showering: You may shower 5 days from the day of surgery as long as the incision is no longer draining. You may shower with the dianelys exposed. Let soapy water run over the dianelys and pat them dry. Do not scrub or soak the incision. Things To Watch For: * Drainage from the incision site that occurs more than one week after your surgery. * Increased redness at the incision site. * Fever above 102 degrees Fahrenheit. * Unusual chest pain or shortness of breath. * Call [facility] at with any of the above problems Follow-Up Visit: Follow-up with Dr. Harris's PA (Javy Zheng) 2-3 weeks after your day of surgery. He will remove your dianelys and answer any questions. If you have any additional questions or concerns, Dr Harris is usually in the office at the same time and will be available An appointment was probably scheduled when you signed-up for surgery in the office. If you have any questions call Office Instructions: More detailed instructions as well as Frequently Asked Questions were provided in a folder by our office when you signed-up for surgery. Please review these instructions when you get home. If you have any further questions or concerns, please feel free to call the office at [phone] Pending Studies at Discharge: No Stand-Alone Forms: My [facility], Smoking Cessation Medications and DC Order Prescriptions: New oxycodone 5 mg Tablet 5 mg PO Q6H PRN (Reason: pain) Qty: 30 0RF cefadroxil 500 mg capsule 500 mg PO BID 10 Days Qty: 20 0RF aspirin 81 mg Tablet,Delayed Release (Dr/Ec) 81 mg PO BID 42 Days Qty: 84 0RF Continued Botox 200 unit recon soln See Rx Instructions IM .COMPLEX Qty: 1 3RF Rx Instructions: 155 UNITS IM IN THE FACE AND NECK MUSCLES EVERY 12 WEEKS PER MIGRAINE PROTOCOL meclizine 25 mg tablet 25 mg PO BID PRN (Reason: dizziness) Qty: 30 0RF Ubrelvy 100 mg tablet 100 mg PO .COMPLEX 30 Days Qty: 10 2RF Rx Instructions: 100 mg orally Take one tablet at onset of mirgraine as needed. May repeat in 2 hour if needed. baclofen 10 mg tablet 10 mg PO TID PRN (Reason: muscle spasm) Qty: 60 1RF cyclosporine ophthalmic (eye) prednisolone acetate (PF) ophthalmic (eye) golo release 1 cap PO TID magnesium glycinate 100 mg magnesium capsule 400 mg PO DAILY Qty: 30 0RF Patient Comments: has not been taking 12/18/23 sucralfate [Carafate] 100 mg/mL suspension 10 ml PO QID Qty: 300 0RF Patient Comments: no longer taking 12/18/23 Rx Instructions: use after food/drink omeprazole 40 mg capsule,delayed release(DR/EC) 40 mg PO QAM Qty: 90 3RF metronidazole 0.75 % gel See Rx Instructions topical .COMPLEX Qty: 45 0RF Patient Comments: no longer taking 12/18/23 Rx Instructions: Apply a small amount to affected area topically at bedtime for 2 weeks; colestipol 1 gram Tablet 1 g PO HS propranolol 60 mg capsule,extended release 24 hr 60 mg PO HS Patient Comments: taking for migraines 12/15/23 not HTN cholecalciferol (vitamin D3) [Vitamin D3] 50 mcg (2,000 unit) Tablet 50 mcg PO DAILY Hair, Skin, Nails with Biotin 7.5-7.5-1,250 mg-unit-mcg Tablet,Chewable 1 tab PO DAILY estradiol 2 mg tablet 2 mg PO QAM amoxicillin 500 mg tablet 2,000 mg PO DIRECTED PRN (Reason: PRIOR TO DENTAL PROCEDURES) Rx Instructions: 4 tabs 1 hour prior to procedure diazepam [Valium] 5 mg tablet 5 mg PO DIRECTED PRN (Reason: PRIOR TO MRI'S) Rx Instructions: 1 tab PO night prior to procedure; then 1 tab PO 1.5 hrs prior to procedure; then 1 tab PO 30 minutes prior to procedure if needed; Held Headache Relief (QKV-bvkt-tzk) 250-250-65 mg tablet 1 tab PO DIRECTED PRN (Reason: Migraine Headache) Hold Instructions: Resume on 02/22/24. Hold until complete with 6 weeks of Aspirin use or directed by PCP/Dr. Harris Discharge Orders: Discharge Order (Routine); Ordered 01/17/24 Ordered By: Anthony Maldonado Admission Data Admit Date/Time: 01/15/24 12:01 Attending Provider: Javy Harris Admit Provider: Javy Harris Primary Care Provider: Gertrude Salcedo Other Providers: [facility]
--- NOTE | 2024-01-18 10:08 | Orthopedic Progress Note ---
Date of Service January 18, 2024 Assessment & Plan (1) Status post left knee replacement: Overall, she is doing quite well today with good pain control to the left knee. She will work with physical therapy later this morning to work on ambulation and range of motion exercises. She is on aspirin for DVT prophylaxis. She has been working well physical therapy with no significant issues. She can be discharged home later this morning pending formal physical therapy recommendations. She will follow-up with orthopedics in 2 weeks for postoperative management. Subjective . Angela was seen and evaluated today resting comfortably in no apparent distress. She notes that her pain is well-controlled to the left knee on her current analgesic regimen. She has been working with physical therapy with no significant issues. She has been up and out of bed with no significant issues. She was supposed to be discharged yesterday but noted that she wanted to stay another night for pain control once discussing the possibility of discharge with her mother. She denies any other concerns today. Review of Systems All systems reviewed & are unremarkable except as noted in HPI & below. Physical Exam .On physical examination of the left knee, dressings are clean, dry, intact. Her leg is out in full extension. She has active plantarflexion dorsiflexion of left ankle. +2 DP and PT pulses. Less than 2-second capillary refill. Normal sensation. Neurovascular intact. Results & Data Results & Data Laboratory Results . Diagnostic Findings . PG Care Time/CCT Total # of Minutes Spent Total Time Spent with Patient: Total time spent is greater than 50% in coordination of care (as documented) at patient's floor/unit and/or counseling patient: Coding Level of Care Code 00394 Post Operative Follow-Up Diagnoses Status post left knee replacement Z96.652
--- NOTE | 2024-01-18 12:32 | Discharge Summary ---
Date of Service January 18, 2024 Principal Diagnosis Same as "Discharge Diagnosis" noted below under Discharge Instructions. Discharge Exam .On physical examination of the left knee, dressings are clean, dry, intact. Her leg is out in full extension. She has active plantarflexion dorsiflexion of left ankle. +2 DP and PT pulses. Less than 2-second capillary refill. Normal sensation. Neurovascular intact. Discharge Data Procedures Performed Operation Date: 01/15/24 10:20 Actual Procedures p Left Total Knee Arthroplasty, Cemented(Left) - Javy Harris DO Ordered Studies 01/15/24 05:00 US - OR guided needle placemen Routine Hospital Course (1) Status post left knee replacement: On January 15, 2024 Angela arrived at [facility] and underwent a left total knee arthroplasty performed by Dr. Harris with no complications. She had a spinal anesthetic. Postoperatively, she was started on aspirin for DVT prophylaxis and transferred to the general orthopedic floor in stable condition. Her hospital course was uneventful. On postoperative day #1, her vital signs are stable and her pain was well-controlled. She participated well with physical therapy working on ambulation and range of motion exercises. She did not feel that she could safely be discharged at this point and requested to stay 1 more day. No other significant events occurred during this day. On postoperative day #2, her vital signs are stable and her pain is well- controlled. She participated well with physical therapy working on ambulation and range of motion exercises. She then stated after physical therapy she was having a little bit more pain and per both her and her family's request, they wanted to stay 1 more night for pain control. No other significant events occurred on this day. On postoperative day #3, her vital signs were stable and her pain was well-controlled. She participated well with physical therapy working on ambulation and range of motion exercises. She was then discharged home in stable condition. She will follow-up with orthopedics in 2 weeks for postoperative management. PG Care Time/CCT Total # of Minutes Spent Total Time Spent with Patient: Total time spent is greater than 50% in coordination of care (as documented) at patient's floor/unit and/or counseling patient: Discharge Plan Discharge Items Patient Disposition: Home - Home Health Services Reason For Visit: Left Knee Degenerative Joint Disease Discharge Diagnosis: Same Activity: Per Instructions section Non-emergency contact: Surgeon Call non-emergency contact if: your temperature is above 101.5, your wound has increased redness, your wound has increased drainage and your wound pain has increased Follow-up/Referrals: Gertrude Salcedo CRNP [Primary Care Provider] - Diet: Regular Addtl Attending Provider Instructions: Activity and Therapy Recommendations: * If you are using [facility] then therapy will be provided at your home until they feel you have accomplished all of your goals. * If you are using [facility] then Physical Therapy will be provided until they feel you are ready to start Outpatient Physical Therapy. * If you are not using home therapy then Outpatient Physical Therapy should start about 3-5 days from your day of surgery. Therapy will last about 6-10 weeks * It is important not to put a pillow under your knee when you are relaxing or sleeping. It is just as important to make sure you are getting your knee perfectly straight as it is to regain your knee bend. * You were shown a series of exercises in the hospital. Do these exercises three times each day including the exercises you were shown in physical therapy. * Get up and walk several times each day. For the first four weeks, try not to stand or walk for more than one hour at a time. If you do stand or walk for more than one hour, you will not hurt anything, but your leg will likely swell. * As you feel comfortable, you may change from the walker or crutches to a cane and then to independent walking. Medications: * Narcotic You will likely be sent home from the hospital with a prescription for the narcotic pain medication that worked best throughout your stay. * Cefadroxil -take the antibiotic twice a day for 10 days to help prevent inf ection. * Aspirin Most patients will be required to take Aspirin 81mg twice a day for 6 weeks after surgery. This is obtained [id number]-[id number] and a prescription is not necessary. * Other medications may be prescribed for specific circumstances. If you have any questions, please call the office at . * Resume previous home medications unless otherwise instructed TEDs/Elastic Stockings: The white elastic stockings help limit swelling and prevent blood clots from forming in your legs.~ The more you wear them, the more they work. Wear them for six weeks. Dressing Care: The dressing can be changed after physical therapy on postop day #1. Daily dry dressing changes for a few days, especially if the incision is still draining some. If the incision is not draining then you may leave the dianelys open to air. If there is a little bit of drainage or if the dianelys are getting stuck on your clothing then cover the incision with a dry dressing. The dianelys will be removed at your 2 week follow-up appointment. Showering: You may shower 5 days from the day of surgery as long as the incision is no longer draining. You may shower with the dianelys exposed. Let soapy water run over the dianelys and pat them dry. Do not scrub or soak the incision. Things To Watch For: * Drainage from the incision site that occurs more than one week after your surgery. * Increased redness at the incision site. * Fever above 102 degrees Fahrenheit. * Unusual chest pain or shortness of breath. * Call [facility] at with any of the above problems Follow-Up Visit: Follow-up with Dr. Harris's PA (Javy Zheng) 2-3 weeks after your day of surgery. He will remove your dianelys and answer any questions. If you have any additional questions or concerns, Dr Harris is usually in the office at the same time and will be available An appointment was probably scheduled when you signed-up for surgery in the office. If you have any questions call Office Instructions: More detailed instructions as well as Frequently Asked Questions were provided in a folder by our office when you signed-up for surgery. Please review these instructions when you get home. If you have any further questions or concerns, please feel free to call the office at [phone] Pending Studies at Discharge: No Stand-Alone Forms: My [facility] [place], Smoking Cessation Medications and DC Order Prescriptions: New aspirin 81 mg Tablet,Delayed Release (Dr/Ec) 81 mg PO BID 42 Days Qty: 84 0RF oxycodone 5 mg Tablet 5 mg PO Q6H PRN (Reason: pain) Qty: 30 0RF cefadroxil 500 mg capsule 500 mg PO BID 10 Days Qty: 20 0RF Continued Botox 200 unit recon soln See Rx Instructions IM .COMPLEX Qty: 1 3RF Rx Instructions: 155 UNITS IM IN THE FACE AND NECK MUSCLES EVERY 12 WEEKS PER MIGRAINE PROTOCOL meclizine 25 mg tablet 25 mg PO BID PRN (Reason: dizziness) Qty: 30 0RF Ubrelvy 100 mg tablet 100 mg PO .COMPLEX 30 Days Qty: 10 2RF Rx Instructions: 100 mg orally Take one tablet at onset of mirgraine as needed. May repeat in 2 hour if needed. baclofen 10 mg tablet 10 mg PO TID PRN (Reason: muscle spasm) Qty: 60 1RF cyclosporine ophthalmic (eye) prednisolone acetate (PF) ophthalmic (eye) golo release 1 cap PO TID magnesium glycinate 100 mg magnesium capsule 400 mg PO DAILY Qty: 30 0RF Patient Comments: has not been taking 12/18/23 sucralfate [Carafate] 100 mg/mL suspension 10 ml PO QID Qty: 300 0RF Patient Comments: no longer taking 12/18/23 Rx Instructions: use after food/drink omeprazole 40 mg capsule,delayed release(DR/EC) 40 mg PO QAM Qty: 90 3RF metronidazole 0.75 % gel See Rx Instructions topical .COMPLEX Qty: 45 0RF Patient Comments: no longer taking 12/18/23 Rx Instructions: Apply a small amount to affected area topically at bedtime for 2 weeks; colestipol 1 gram Tablet 1 g PO HS propranolol 60 mg capsule,extended release 24 hr 60 mg PO HS Patient Comments: taking for migraines 12/15/23 not HTN cholecalciferol (vitamin D3) [Vitamin D3] 50 mcg (2,000 unit) Tablet 50 mcg PO DAILY Hair, Skin, Nails with Biotin 7.5-7.5-1,250 mg-unit-mcg Tablet,Chewable 1 tab PO DAILY estradiol 2 mg tablet 2 mg PO QAM amoxicillin 500 mg tablet 2,000 mg PO DIRECTED PRN (Reason: PRIOR TO DENTAL PROCEDURES) Rx Instructions: 4 tabs 1 hour prior to procedure diazepam [Valium] 5 mg tablet 5 mg PO DIRECTED PRN (Reason: PRIOR TO MRI'S) Rx Instructions: 1 tab PO night prior to procedure; then 1 tab PO 1.5 hrs prior to procedure; then 1 tab PO 30 minutes prior to procedure if needed; Held Headache Relief (TVP-rqdo-ajy) 250-250-65 mg tablet 1 tab PO DIRECTED PRN (Reason: Migraine Headache) Hold Instructions: Resume on 02/22/24. Hold until complete with 6 weeks of Aspirin use or directed by PCP/Dr. Harris Discharge Orders: Discharge Order (Routine); Ordered 01/18/24 Ordered By: Anthony Maldonado Admission Data Admit Date/Time: 01/15/24 12:01 Attending Provider: Javy Harris Admit Provider: Javy Harris Primary Care Provider: Gertrude Salcedo Other Providers: [facility] Other Interventions: Discharge Summary Assessment (RN) Last Done: 01/18/24 08:37
== END 2024-01-18 12:55 | disposition home health service (06) | DRG 470 ==
LOC: ASU 08:46 → INTOOBSV 12:01 → 3W 12:01
DX: Z83.3 Family history of diabetes mellitus; Z79.899 Other long term (current) drug therapy; Z86.16 Personal history of COVID-19; M17.12 Unilateral primary osteoarthritis, left knee; M65.9 Synovitis and tenosynovitis, unspecified; Z88.6 Allergy status to analgesic agent; Z79.82 Long term (current) use of aspirin; M79.7 Fibromyalgia; K58.9 Irritable bowel syndrome, unspecified; E03.9 Hypothyroidism, unspecified

== ENCOUNTER 2025-07-15 06:12 | Observation (INO) ==
--- NOTE | 2025-06-17 12:56 | PAT Medication Instructions ---
Medication Instructions Date of Service June 17, 2025 Home Medications Medication Instructions Recorded Botox 200 unit injection See Rx Instructions IM .COMPLEX #1 11/21/24 (onabotulinumtoxinA) ea bupropion HCl 300 mg 24 hr tablet, 300 mg PO QAM #30 tabs 05/13/25 extended release baclofen 10 mg tablet 10 mg PO TID PRN muscle spasm #60 05/23/25 tabs alyzgfa-dqewwijgyohvw-rtwwrcrg 250 mg-250 mg-65 mg tablet (Headache Relief (ASA- acetaminophn-caffeine)) 1 tab PO DIRECTED PRN Migraine Headache Botox 200 unit injection (onabotulinumtoxinA) See Rx Instructions IM .COMPLEX bupropion HCl 300 mg 24 hr tablet, extended release 300 mg PO QAM baclofen 10 mg tablet 10 mg PO TID PRN muscle spasm cyclobenzaprine 5 mg tablet 5 mg PO DAILY PRN muscle spasms magnesium glycinate 100 mg (as glycinate) tablet 500 mg PO HS ubrogepant 100 mg tablet (Ubrelvy) 100 mg PO UD PRN migraines Continue as directed Botox 200 unit injection (onabotulinumtoxinA) See Rx Instructions IM .COMPLEX ASK your surgeon for instructions ergohoh-tkqqdnbpbjdra-udrbjbky 250 mg-250 mg-65 mg tablet (Headache Relief (VOZ-zoqekkqymhja-wpjhmfap)) 1 tab PO DIRECTED PRN Migraine Headache ASK your prescriber and surgeon ubrogepant 100 mg tablet (Ubrelvy) 100 mg PO UD PRN migraines Take morning of surgery With a small sip of water, OTHERWISE NOTHING TO EAT OR DRINK AFTER MIDNIGHT: bupropion HCl 300 mg 24 hr tablet, extended release 300 mg PO QAM baclofen 10 mg tablet 10 mg PO TID PRN muscle spasm (if needed) cyclobenzaprine 5 mg tablet 5 mg PO DAILY PRN muscle spasms (if needed) Take evening before surgery baclofen 10 mg tablet 10 mg PO TID PRN muscle spasm (if needed) cyclobenzaprine 5 mg tablet 5 mg PO DAILY PRN muscle spasms (if needed) magnesium glycinate 100 mg (as glycinate) tablet 500 mg PO HS Other Notes If you have any questions please call us at [phone] or [phone] or [phone] or [phone]
--- NOTE | 2025-06-24 09:53 | Anesthesiology Consultation ---
Date of Service June 24, 2025 Assessment & Plan (1) Encounter for pre-operative examination: - ER 06/03/25 [facility]: "...lumbar back pain for the last couple of months but has now worsened...neck pain and numbness and tingling in the right upper arm...MRI of the cervical and lumbar spine were ordered due to the patient's right leg weakness, bowel incontinence although likely secondary to IBS history, and numbness and tingling to the right upper extremity...Results show trace blood and 2+ leukocyte esterase. Due to the patient's symptoms she was started on Keflex and her first dose was given here...On reevaluation of the patient she confirms that her pain has improved but she is still in a significant amount of discomfort. MRI of the lumbar spine shows worsened disc herniation at L5-S1 compressing the right S1 nerve root. A consultation with orthopedic spine can be seen in detail above...to evaluate the patient in the office in 2 days..." Chart Review Chart Review: Acceptable Risk for Surgery and Patient seen in Pre Admission Testing Teaching & Discussion Pre-Anesthesia Teaching/Discussion Notes: Instructed NPO after midnight before surgery, except medications with 15 cc of water. Medication instructions provided according to the PAT guidelines. History Surgery Operation Date: 07/15/25 10:35 Proposed Procedures p Right L5-S1 Microdiscectomy - Chad Goncalves MD Height/Weight Height: 5 ft 3 in Weight: 71.8 kg Allergies Allergy/AdvReac Type Severity Reaction Status Date / Time topiramate Allergy Unknown Unknown Verified 06/16/25 13:49 cat dander AdvReac Mild Irritable Verified 06/16/25 13:49 dog dander AdvReac Mild Irritable Verified 06/16/25 13:49 NSAIDS (Non-Steroidal AdvReac Unknown GI upset, Verified 06/16/25 13:49 Anti-Inflamma advised to avoid by GI doctor Medications Home Medications Medication Instructions Recorded Confirmed Last Taken wcutwfb-kxjbqgyrtpydl-rjtauwlv 250 1 tab PO DIRECTED PRN Migraine 06/07/22 06/16/25 01/08/24 mg-250 mg-65 mg tablet (Headache Headache Relief (NNJ-hsqkrbcehxxn-thzxsckh)) Botox 200 unit injection See Rx Instructions IM .COMPLEX #1 11/21/24 06/16/25 Unknown (onabotulinumtoxinA) ea bupropion HCl 300 mg 24 hr tablet, 300 mg PO QAM #30 tabs 05/13/25 06/16/25 Unknown extended release baclofen 10 mg tablet 10 mg PO TID PRN muscle spasm #60 05/23/25 06/16/25 Unknown tabs cyclobenzaprine 5 mg tablet 5 mg PO DAILY PRN muscle spasms 06/16/25 06/16/25 Unknown magnesium glycinate 100 mg (as 500 mg PO HS 06/16/25 06/16/25 Unknown glycinate) tablet ubrogepant 100 mg tablet (Ubrelvy) 100 mg PO UD PRN migraines 06/16/25 06/16/25 Unknown Past Medical History Medical History (Updated 06/24/25 @ 09:55 by Kay Choe PA-C) Abdominal pain chronic, used to see [facility] Chiari I malformation No surgical repair, follows with Dr. Bo with [facility] Chronic diarrhea Chronic lumbar pain Depression Elevated blood pressure reading in office without diagnosis of hypertension Fibromyalgia Gastritis Hx GERD (gastroesophageal reflux disease) controlled, stable per pt: she states chest discomfort resolved with increase in PPI, follows with PCP Herniated disc Lumbar > got injection History of COVID-19 (~2020) Dx 12/2020 > symptoms at time of fever, achiness, loss of appetite, increased back pain > resolved IBS (irritable bowel syndrome) Lyme disease Hx-several yrs ago, no current issues Migraine Neuropathy LLE and feet Patient denies h/o stroke, seizures, heart attack, heart failure, DM, blood clots/DVTs or blood transfusions. Exercise / Class Metabolic Activity II 4-5 Yardwork/Stairs/Walk up hill (denies chest discomfort or shortness of breath with one flight of stairs) Past Family History Family History Mother Family history of diabetes mellitus Other No family history of adverse response to anesthesia Past Surgical History Surgical History History of cholecystectomy Lap cholecystectomy (12/14/18): Grade 2 view, MAC#3, ETT 7.0 at [facility] History of colonoscopy History of esophagogastroduodenoscopy (EGD) History of hysterectomy Laparoscopic History of tooth extraction wisdom teeth History of total knee replacement Right Unicompartmental Knee Arthroplasty left knee total arthroplasty Past Anesthesia History No Hx of Anesthesia Complications and No Family Hx of Anesthesia Complications History of PONV No Hx of PONV and Hx of Motion Sickness Social History Smoking Status: Never smoker Do You Dip or Chew Tobacco: No Hx Alcohol Use: Yes Alcohol type: hard liquor alcohol intake frequency: holidays/special occasions only Hx Substance Use: No substance use type: does not use Review of Systems Occasional snoring, denies witnessed apneas. Patient denies chest pain, shortness of breath, dyspnea on exertion, fever, chills, cough, wheezing, or palpitations. Physical Exam Vital Signs Vitals BP 125/84 P 76 TEMP 98.0 SP02 98% on RA RESP 18 Physical Patient resting comfortably in chair in no acute distress, alert and oriented, responding appropriately throughout visit Full cervical extension range of motion without pain TMD 3.5 finger breadths Mallampati Score 2 Dentition: intact, denies chipped or loose teeth, caps/crowns, implants or bridges Lungs: normal respiratory effort. Good air movement, clear throughout to auscultation, no adventitious breath sounds Cardiac: regular rate and rhythm, no murmurs noted Carotid arteries: negative bruit bilat Lab Results Anesthesia Preop Results Results Anesthesia Widget: WBC 4.60 K/ul (4.8-10.8) L 06/24/25 Hgb 13.1 g/dl (12.0-16.0) 06/24/25 Hct 41.3 % (37.0-47.0) 06/24/25 Plt 348 K/uL (130-400) 06/24/25 Na 137 mmol/L (136-145) 06/03/25 K 4.1 mmol/L (3.5-5.1) 06/03/25 Cl 102 mmol/L (98-107) 06/03/25 CO2 31 mmol/L (21-32) 06/03/25 BUN 17 mg/dl (6-23) 06/03/25 Creat 0.58 mg/dl (0.6-1.2) L 06/03/25 Glucose Level 119 mg/dl (70-99(Fasting)) H 06/03/25 PT 10.3 Seconds (9.0-12.0) 06/24/25 PTT 29 Seconds (21-31) 06/24/25 INR 0.9 (0.9-1.1) 06/24/25 HA1c 5.9 % (4.5-5.6) H 06/24/25 Urine Color Yellow 06/24/25 Urine Appearance Clear (Clear) 06/24/25 Urine pH 8.5 (4.5-7.5) H 06/24/25 Urine Specific [place] 1.014 (1.000-1.030) 06/24/25 Urine Protein Negative (Negative) 06/24/25 Urine Glucose (UA) Negative (Negative) 06/24/25 Urine Ketones Negative (Negative) 06/24/25 Urine Blood Negative (Negative) 06/24/25 Urine Nitrite Negative (Negative) 06/24/25 Urine Bilirubin Negative (Negative) 06/24/25 Urine Urobilinogen Negative (Negative) 06/24/25 Urine Leukocyte Esterase Negative (Negative) 06/24/25 Urine WBC (Auto) 21-50 /hpf (0-5) H 06/03/25 Urine RBC (Auto) 0-2 /hpf (0-2) 06/03/25 Urine Hyaline Casts (Auto) 0-2 /lpf (0-2) 06/03/25 Urine Epithelial Cells (Auto) 0-2 /hpf (0-2) 06/03/25 Urine Bacteria (Auto) 2+ (None Seen) H 06/03/25 Blood Type O Positive 06/24/25 Antibody Screen NEGATIVE 06/24/25 Testing Electrocardiogram Date: 06/24/25 NSR, rate 70 bpm Chest X-Ray Date: 06/24/25 Heart size and pulmonary vasculature are normal. No consolidation or pleural effusion. IMPRESSION: No acute findings. Stress Test Date: 11/29/23 MPHR 93% METS 7 Normal stress echocardiogram EF 66% No stress induced segmental wall motion abnormalities No significant valvular pathology Cervical Spine Date: 06/03/25 Cervical disc bulges without spinal stenosis or nerve root compression
[2025-07-15] MEDS: LR 60ML/HR IV SCH (06:43)
[2025-07-15] MEDS: LR 15ML/HR IV SCH (06:43)
[2025-07-15] MEDS: ACETAMINOPHEN 500 MG TAB PO SCH (06:46)
[2025-07-15] MEDS ORDERED: HYDROmorphone INJ 1 MG/ML SYRINGE IV PRN (06:58)
[2025-07-15] MEDS ORDERED: ONDANSETRON INJ 2 MG/ML 2 ML VIAL IV PRN ×2 (06:58→10:22)
[2025-07-15] MEDS ORDERED: ATROPINE SULFATE 0.1 MG/ML 10ML SYR IV PRN (06:58)
[2025-07-15] MEDS ORDERED: PROMETHAZINE HCL 6.25 MG in SODIUM CHLORIDE 0.9% 50 ML IV PRN (06:58)
[2025-07-15] MEDS ORDERED: PROPOFOL IV EMULSION 10 MG/ML 20 ML VIAL IV ONE ×3 (07:01→09:13)
[2025-07-15] MEDS ORDERED: ONDANSETRON INJ 2 MG/ML 2 ML VIAL ONE (07:01)
[2025-07-15] MEDS ORDERED: ROCURONIUM BROMIDE 10 MG/ML 5 ML VIAL IV ONE ×2 (07:01→08:13)
[2025-07-15] MEDS ORDERED: DEXAMETHASONE SOD INJ 4 MG/ML VIAL ONE (07:01)
[2025-07-15] MEDS ORDERED: LIDOCAINE 2% 2 ML VIAL/AMP(20MG/ML) INFIL ONE (07:01)
[2025-07-15] MEDS ORDERED: MIDAZOLAM HCL 1 MG/ML 2ML VIAL ONE (07:02)
--- NOTE | 2025-07-15 07:18 | History & Physical Bridge Note ---
Date of Service July 15, 2025 History & Physical Bridge Note I have examined the patient, reviewed the History & Physical and in the interval since the performance of the History & Physical I have noted the following changes of clinical significance: no changes noted
--- NOTE | 2025-07-15 07:19 | History & Physical Report ---
Date of Service July 15, 2025 History of Present Illness Chief Complaint: .54-year-old female referred here for evaluation for low back pain and right leg radicular symptoms. Patient states that she has had symptoms for a number of years, she has undergone treatment with chiropractic physical therapy and pain management, her last pain management injection with [facility] was on September 06, 2023 with an epidural injection on the right at L5-S1. Unfortunately she only received a week or so improvement in her symptoms. Since that time she has continued to have same symptoms with pain in the right lumbosacral region and then going into the buttock area into the thigh but s omewhat diffusely, it will also result in some symptoms in the right knee though she is status post a partial knee replacement in the past on the right by Dr. Harris. She was evaluated previously by Dr. Dumont, but he does not take her insurance, she is here for evaluation and recommendations. She is recently seen in the emergency room she is status post a MRI of the lumbar spine from June 03, and is finishing up taper dose steroid which improves her symptoms but they return as soon as it is concluded. Exam reveals her to indicate pain right lumbosacral junction. She can toe and heel walk without any obvious weakness but perhaps tends to space favor the right lower extremity, but no obvious weakness. While seated I can elicit trace to 1 knee reflexes roughly symmetric absent ankle reflexes, otherwise motor groups are intact, straight leg raise both left and more so on the right causes some low back pain, some limited thigh symptoms on the right side. MRI images from [facility] from 06/03/2025 lumbar spine were reviewed, this is my separate interpretation, this also includes a review of MRI images from September 06, 2023 and also 2 previous MRIs going back to 2021 and 2019, and this reveals the main findings to be at L5-S1 on the right with a right sided disc protrusion which on the current MRI causes pressure on the S1 nerve root and also some foraminal narrowing on the right side at that level. There the remaining levels are relatively unremarkable, there might be very minimal bulging if any at next 2 cephalad levels and very subtle slight decrease in signal intensity. Impression: L5-S1 disc herniation on the right side with combination of lumbar axial but also some right leg radicular symptoms. Plan: Today I reviewed the MRI images with the patient and went over these in detail along with another family member present, and at this time I noted to her that the main finding by far is the disc protrusion on the right side at L5-S1. I did reiterate to her that certainly if any of the conservative measures were helpful she could continue along with those, and even the consideration for revisiting pain management as perhaps going at her symptoms with tra nsforaminal's on the right at L5 and S1 right results differently than the epidural, but certainly she has been through this in the past and she declined on wanting to undergo any additional injections. For this reason I told the patient she would be appropriate for surgery, the surgery I would recommend that would be a right sided discectomy at L5-S1 with the goal of hopefully proving room for both the L5 and S1 nerve roots and some that resultant improvement of pain. I spent time talking with her about the surgical procedure, hospital postoperative course, this would be anticipated as it outpatient type procedure, procedure risk complications including but not exclusive to chance of infection, neurologic injury, continuation of symptoms anesthesia risk. I did emphasize to the patient that continuation of the back pain is a possibility, and there is also possibly she might be having some symptoms coming from other levels but certainly no notable findings at these lower levels. I would not recommend an arthrodesis at this time. Patient was in agreement with this plan she would like to move ahead with the surgical procedure we will send in the appropriate information, and try to get her scheduled for the near future, she is in agreement with this plan. Primary Care Provider: SHANIA Gaspar . Allergies Allergy/AdvReac Type Severity Reaction Status Date / Time topiramate Allergy Unknown Unknown Verified 07/15/25 06:18 cat dander AdvReac Mild Irritable Verified 07/15/25 06:18 dog dander AdvReac Mild Irritable Verified 07/15/25 06:18 NSAIDS (Non-Steroidal AdvReac Unknown GI upset, Verified 07/15/25 06:18 Anti-Inflamma advised to avoid by GI doctor Home Medications Medication Instructions Recorded Confirmed Type plhmzug-hkdytqlwczgdp-eclprhda 250 1 tab PO DIRECTED PRN Migraine 06/07/22 07/15/25 History mg-250 mg-65 mg tablet (Headache Headache Relief (GZN-gwtpcodatana-fjwbwtit)) Botox 200 unit injection See Rx Instructions IM .COMPLEX #1 11/21/24 07/15/25 Rx (onabotulinumtoxinA) ea baclofen 10 mg tablet 10 mg PO TID PRN muscle spasm #60 05/23/25 07/15/25 Rx tabs cyclobenzaprine 5 mg tablet 5 mg PO DAILY PRN muscle spasms 06/16/25 07/15/25 History magnesium glycinate 100 mg (as 500 mg PO HS 06/16/25 07/15/25 History glycinate) tablet meclizine 25 mg tablet 25 mg PO BID PRN dizziness #30 tabs 06/27/25 07/15/25 Rx ubrogepant 100 mg tablet (Ubrelvy) 100 mg PO ONCE PRN migraine 06/29/25 07/15/25 Rx headache 30 days #16 tabs bupropion HCl 300 mg 24 hr tablet, 300 mg PO QAM 07/15/25 07/15/25 History extended release (Wellbutrin XL) Past Med/Surg History Problem List Lumbar radiculopathy, right Depression Chronic migraine without aura or status migrainosus Carpal tunnel syndrome on both sides Paresthesia of right upper extremity Disc degeneration, lumbar Hypothyroidism no meds Osteoarthritis, knee Chronic lumbar pain Injury of left foot including toes Generalized pruritus Chronic diarrhea GERD (gastroesophageal reflux disease) Chiari malformation (Acute) No surgical repair, follows with Dr. Bo with [facility] IBS (irritable bowel syndrome) Fibromyalgia (Acute) Migraine Neuropathy LLE Medical History Neuropathy LLE and feet IBS (irritable bowel syndrome) Fibromyalgia Depression Chronic lumbar pain Chronic diarrhea Chiari I malformation No surgical repair, follows with Dr. Bo with [facility] Elevated blood pressure reading in office without diagnosis of hypertension GERD (gastroesophageal reflux disease) controlled, stable per pt: she states chest discomfort resolved with increase in PPI, follows with PCP History of COVID-19 (~2020) Dx 12/2020 > symptoms at time of fever, achiness, loss of appetite, increased back pain > resolved Migraine Abdominal pain chronic, used to see [facility] Gastritis Hx Lyme disease Hx-several yrs ago, no current issues Herniated disc Lumbar > got injection Surgical History History of tooth extraction wisdom teeth History of total knee replacement Right Unicompartmental Knee Arthroplasty left knee total arthroplasty History of esophagogastroduodenoscopy (EGD) History of cholecystectomy Lap cholecystectomy (12/14/18): Grade 2 view, MAC#3, ETT 7.0 at [facility] History of colonoscopy History of hysterectomy Laparoscopic Family History Mother Family history of diabetes mellitus Other No family history of adverse response to anesthesia Social History Smoking Status: Never smoker packs per day: 0; Second Hand Exposure: No; Do You Dip or Chew Tobacco: No; Tobacco Cessation Education Requested by Patient: No Hx Alcohol Use: Yes Alcohol type: hard liquor Hx Substance Use: No Preferred Language: Korean Communication Ability: Effective Visual Impairment: No Limitations Hearing Ability: Normal Weigh Tank Operator Required: No Beliefs That Will Affect Care: None Current Living Situation: Spouse Current Living Situation Comment: Lives with and 2 sons current occupational status: employed current occupation: [employer]EL[employer] Other Information That Helps Us Care for You: No Feels Safe at Home: Yes Safety Concerns: Feels Safe At This Time Childhood Exposure to Second-Hand Smoke: No Diet: regular caffeine: Yes during the past year weight has: remained stable Dental Care, Regularly: No Physical Activity Frequency: 1-2 Times per Week Seatbelt Use: always Sunscreen Use: Yes Assistive Devices: Glasses Review of Systems All systems reviewed & are unremarkable except as noted in HPI & below. Physical Exam . Results & Data Results & Data Laboratory Results . Diagnostic Findings . PG Care Time/CCT Total # of Minutes Spent Total Time Spent with Patient: Total time spent is greater than 50% in coordination of care (as documented) at patient's floor/unit and/or counseling patient: Coding Level of Care Code 11815 INT INP/OBS CARE 1/40MIN
[2025-07-15] MEDS ORDERED: ePHEDrine sulfate 50 MG/5 ML SYR ONE (08:31)
[2025-07-15] MEDS: VANCOMYCIN HCL 1000MG/20ML VIAL ONE (08:39)
[2025-07-15] MEDS ORDERED: KETOROLAC 30 MG/ML VIAL ONE (09:03)
[2025-07-15] MEDS ORDERED: SUGAMMADEX SODIUM 200 MG/2 ML VIAL IV ONE (09:55)
[2025-07-15] MEDS: BUPIVACAINE/EPINEPHRINE 0.5% MPF 1:200,000 30 ML VIAL ONE (10:05)
[2025-07-15] MEDS: FLOSEAL HEMOSTATIC MATRIX 5ML TOP ONE (10:05)
[2025-07-15] MEDS: THROMBIN 5000 UNITS KIT ONE (10:07)
[2025-07-15] MEDS: GELATIN SPONGE 12-7MM ONE (10:07)
--- NOTE | 2025-07-15 10:11 | Post Operative Brief Note ---
PG Immediate Post Op with CF Date of Surgery July 15, 2025 Pre & Post Diagnosis Operation Date: 07/15/25 07:30 Pre-Op Diagnosis: Lumbar Disc Herniation, Lumbar Radiculopathy Right Post-Op Diagnosis: Lumbar Disc Herniation, Lumbar Radiculopathy Right I identified the patient and participated in the time-out.: Yes Procedure Operation Date: 07/15/25 07:30 Actual Procedures p Right L5-S1 Microdiscectomy(Not Applicable) - Chad Goncalves MD Surgeon Chad Goncalves MD Assistant Fitness Manager none Estimated Blood Loss 5 Findings Consistent with Post-Op Diagnosis Specimens Specimen Description: No specimen per surgeon
[2025-07-15] MEDS ORDERED: NALOXONE HCL 0.4 MG/1 ML VIAL/CARP IV PRN (10:22)
[2025-07-15] MEDS ORDERED: LORazepam 0.5 MG TAB PO PRN (10:22)
[2025-07-15] MEDS ORDERED: diphenhydrAMINE Capsule 25 MG CAP PO PRN (10:22)
[2025-07-15] MEDS ORDERED: PROMETHAZINE 12.5 MG/50.5 ML BAG IV PRN (10:22)
[2025-07-15] MEDS ORDERED: SOD PHOSPHATE/SOD BIPHOSPHATE ENEMA 132 ML BTL PR PRN (10:22)
[2025-07-15] MEDS ORDERED: LORazepam Inj 0.5 MG in SYRINGE 0.25 ML IV PRN (10:22)
[2025-07-15] MEDS ORDERED: ONDANSETRON 4 MG OD TAB PO PRN (10:22)
[2025-07-15] MEDS ORDERED: FAMOTIDINE 20 MG TAB PO PRN (10:22)
[2025-07-15] MEDS ORDERED: METOCLOPRAMIDE HCL INJ 5 MG/ML 2 ML VIAL IV PRN (10:22)
[2025-07-15] MEDS ORDERED: ACETAMINOPHEN 1,000 MG/100 ML VIAL IV PRN (10:22)
[2025-07-15] MEDS ORDERED: ALUMINUM/MAGNESIUM SUSP 30 ML UDC PO PRN (10:22)
[2025-07-15] MEDS ORDERED: MAGNESIUM HYDROXIDE SUSP 30 ML UDC PO PRN (10:22)
[2025-07-15] MEDS ORDERED: DO NOT ADMINISTER FLU VACCINE PRN (10:22)
[2025-07-15] MEDS ORDERED: DO NOT ADMINISTER PNEUMOCOCCAL VACCINE PRN (10:22)
[2025-07-15] MEDS ORDERED: ACETAMINOPHEN 500 MG TAB PO PRN (10:22)
--- NOTE | 2025-07-15 10:34 | Fluoroscopy Report ---
FL spine 1V any level CLINICAL HISTORY: L5-S1 MICRO COMPARISON STUDY: None FLUOROSCOPY TIME: 27 seconds FLUOROSCOPY IMAGES: 4 EXPOSURE DOSE: 16 mGy FINDINGS: Fluoroscopy was provided for L5-S1 microdiscectomy. IMPRESSION: Intraoperative fluoroscopy. ACT 112: Negative or not required by law. Electronically signed by: Vlad Ortega M.D. 07/15/2025 10:33 AM
[2025-07-15] MEDS ORDERED: CYCLOBENZAPRINE HCL 5 MG TAB PO PRN (11:46)
[2025-07-15] MEDS ORDERED: ASPIRIN ACETAMINOPHEN CAFFEINE PO PRN (11:46)
[2025-07-15] MEDS ORDERED: MECLIZINE HCL 25 MG TAB PO PRN (11:46)
[2025-07-15] MEDS ORDERED: BACLOFEN 10 MG TAB PO PRN (11:46)
--- NOTE | 2025-07-15 16:19 | Anesthesiology Progress Note ---
Date of Service July 15, 2025 Anesthesia Post Procedure Vital Signs Vital Signs: Temp Pulse Pulse Resp BP Pulse Ox O2 Del Method 07/15/25 14:38 36.9 C 85 17 119/83 95 Room Air 07/15/25 14:29 36.6 C 80 16 125/84 96 Room Air 07/15/25 13:28 36.4 C L 85 17 127/84 97 Room Air 07/15/25 12:28 90 16 135/85 96 Room Air 07/15/25 12:01 90 16 149/81 H 98 Room Air 07/15/25 11:35 36.5 C 87 17 144/89 H 96 Room Air 07/15/25 11:15 87 13 137/86 96 Room Air 07/15/25 11:05 36.5 C 91 H 12 136/85 96 Room Air 07/15/25 11:00 94 H 14 138/88 97 Room Air 07/15/25 10:50 101 H 15 142/88 H 94 Oxymask 07/15/25 10:40 94 H 19 123/89 96 Oxymask 07/15/25 10:30 36 C L 104 H 19 141/88 H 95 Oxymask 07/15/25 06:31 36.6 C 84 18 158/98 H 97 Room Air O2 Flow Rate 07/15/25 14:38 07/15/25 14:29 07/15/25 13:28 07/15/25 12:28 07/15/25 12:01 07/15/25 11:35 07/15/25 11:15 07/15/25 11:05 07/15/25 11:00 07/15/25 10:50 2 07/15/25 10:40 4 07/15/25 10:30 8 07/15/25 06:31 Pain Intensity Head: Pain Intensity: 4 Transfer of Care Handoff Completed per policy Notes Mental Status: alert / awake / arousable and participated in evaluation Patient Amnestic to Procedure: Yes Nausea / Vomiting: adequately controlled Pain: adequately controlled Airway Patency, RR, SpO2: stable & adequate BP & HR: stable & adequate Hydration State: stable & adequate Anesthetic Complications: no major complications apparent and Pt Satisfied with anesthetic care
[2025-07-15] MEDS: HYDROmorphone INJ 0.5 MG/0.5 ML SYR IV PRN (18:44)
[2025-07-15] MEDS: DOCUSATE SODIUM/SENNA 50/8.6MG TAB PO SCH (20:09)
[2025-07-15] MEDS ORDERED: NON-FORMULARY MEDICATION (Magnesium Glycinate 100 mg Tablet) PO SCH (21:00)
[2025-07-15] MEDS: HYDROmorphone INJ 1 MG/ML SYRINGE IV PRN (22:56)
[2025-07-16 03:55] VITALS: TEMP 97.9
[2025-07-16] MEDS: POLYETHYLENE (MIRALAX) 17 GM PACK PO SCH (05:14)
[2025-07-16 07:10] VITALS: RESP 16
--- NOTE | 2025-07-16 08:51 | Orthopedic Progress Note ---
Date of Service July 16, 2025 Assessment & Plan (1) Lumbar radiculopathy, right: * Continue Current Treatment * Disposition: home * Daily treatment: Physical Therapy/ Occupational Therapy per protocol * Weight bearing status: WBAT * Continue to monitor for ABLA * Pain control * May change dressing prior to discharge * Office/hospital f/u 2 weeks for progress check and staple/suture removal * Plan for discharge today pending PT/OT clearance Subjective Active Problems: S/p L5-S1 microdiscectomy POD 1 54 y/o female s/p L5-S1 microdiscectomy. Doing well overall, pain managed and improved function. Denies fever/chills, chest pain/SOB, nausea/vomiting. Otherwise no complaints. Review of Systems All systems reviewed & are unremarkable except as noted in HPI & below. Physical Exam . General: Alert and oriented, no acute distress * Constitutional: well-developed, well-nourished. * Respiratory: Normal respiratory effort, no distress * Gastrointestinal: No tenderness to palpation, no rigidity or guarding. * Skin: No rash or lesion. * Neurologic: Grossly normal * Musculoskeletal: Surgical dressing CDI. Lumbar spine region without obvious deformity or overlying skin changes. Minimal tenderness of surgical region, otherwise no tenderness b/l buttock or LE. Lumbar flexion/extension and rotation ROM with minimal pain. AROM b/l hip flexion, knee flexion/extension, ankle flexion/extension intact. Sensation intact plantar/dorsal foot. Brisk capillary refill. Results & Data Results & Data Laboratory Results . Diagnostic Findings . Spine X-Ray 07/15/25 07:30 FL spine 1V any level CLINICAL HISTORY: L5-S1 MICRO COMPARISON STUDY: None FLUOROSCOPY TIME: 27 seconds FLUOROSCOPY IMAGES: 4 EXPOSURE DOSE: 16 mGy FINDINGS: Fluoroscopy was provided for L5-S1 microdiscectomy. IMPRESSION: Intraoperative fluoroscopy. ACT 112: Negative or not required by law. Electronically signed by: Vlad Ortega M.D. 07/15/2025 10:33 AM PG Care Time/CCT Total # of Minutes Spent Total Time Spent with Patient: Total time spent is greater than 50% in coordination of care (as documented) at patient's floor/unit and/or counseling patient: Coding Level of Care Code 57365 Post Operative Follow-Up Diagnoses Lumbar radiculopathy, right M54.16
[2025-07-16 11:09] VITALS: BP 125/80; PULSE 78; O2SAT 94
--- NOTE | 2025-07-16 15:53 | Operative Report ---
[facility] Post Operative Report Pre & Post Diagnosis Operation Date: 07/15/25 07:30 Pre-Op Diagnosis: Lumbar Disc Herniation, Lumbar Radiculopathy Right Post-Op Diagnosis: Lumbar Disc Herniation, Lumbar Radiculopathy Right I identified the patient and participated in the time-out.: Yes Procedure Operation Date: 07/15/25 07:30 Actual Procedures p Right L5-S1 Microdiscectomy(Not Applicable) - Chad Goncalves MD Surgeon Chad Goncalves MD Industrial Relations Analyst none Estimated Blood Loss 5 Findings Consistent with Post-Op Diagnosis Specimens none Description of Procedure 1. Right L5-S1 microdiscectomy. (38743) Patient was taken the operating room and after adequate anesthesia was carefully position prone on the Marquez frame and checked for positioning. A preprepped was performed along with bringing in fluoroscopy where a kurtis for the approximate location of the incision just off midline to the right at the L5-S1 level. Prep and drape was performed, I began the procedure with a longitudinal incision just off midline to the right of the spinous processes of L5-S1, after incising the fascia I then advanced the initial dilator from the NuVasive tube set down to the interlaminar region at L5-S1. I then followed this with additional dilators with fluoroscopic control followed by the access apparatus. The operative microscope was then brought in and I then visualized the interlaminar region on the right side. Some overlying muscle tissue and other tissues was removed exposing the interlaminar edges of the L5 and S1 region along with the facet. I then used a high-speed bur to perform the right sided hemilaminotomy on L5 along the medial facet to some degree and across superior laminar edge of S1. The thickened ligamentum flavum was then thinned and removed exposing the dura which was then mobilized medially. The disc protrusion was identified, I then carefully remove the disc protrusion with a combination of curettes, pituitaries and this process continued until I thought the lateral recess region and a disc protrusion had been decompressed adequately. Final inspection revealed no issues, small amount of Floseal was u tilized in this region along with a small amount of bipolar cautery, at the end of the procedure Floseal was applied along with some local anesthetic and small amount of steroid. The operative site was then closed after local anesthetic was injected in the region followed by 0 Vicryl sutures for the fascial layer 2- 0 Vicryl sutures and dianelys for the skin. Sterile dressing was applied, the patient was tolerated procedure well was taken recovery room in satisfactory condition. I attest to the content of the Intraoperative Record and any orders documented therein. Any exceptions are noted below.
== END 2025-07-16 12:17 | disposition home or self-care (01) ==
LOC: 3E 06:12 → ASU 06:12